=== PATIENT | male | born 1955 | race American Indian/Alaskan Native ===

== ENCOUNTER 2016-09-14 02:06 | Emergency (ER) | payer SELFPAY ==
--- NOTE | 2016-09-14 03:14 | Emergency Department Report ---
ED General Adult HPI - General Chief complaint: Altered Mental Status Stated complaint: POSSIBLE OVERDOSE Time Seen by Provider: 09/14/16 03:06 Source: patient, family, EMS (verbal report received from EMS. ems notes not available at time of chart dictation), RN notes reviewed Mode of arrival: Stretcher Limitations: No Limitations - History of Present Illness Initial comments: This is a 61-year-old male. He is previously unknown to me. He is brought to the hospital by EMS for resolved altered mental status. As per verbal report from EMS, the patient was recreationally consuming drugs, including beer and crack and a green party, occasionally uses tobacco, and had an episode of unresponsiveness. As per verbal report from EMS, the patient did not fall or hit his head. Patient got 1 mg of Narcan 2 prior to arrival which improved the patient's symptoms. The patient denies headache, neck pain, chest pain, abdominal pain, shortness of breath, homicidality and suicidality. -: Gradual Consistency: now resolved Improves with: medication Worsens with: none Associated Symptoms: denies other symptoms - Related Data Previous Rx's Medication Instructions Recorded Last Taken Type Naloxone HCl [Narcan] 4 mg NS Q1HR PRN #2 spray 09/14/16 Unknown Rx Allergies Allergy/AdvReac Type Severity Reaction Status Date / Time No Known Allergies Allergy Unverified 07/27/13 21:55 ED Review of Systems ROS: Stated complaint: POSSIBLE OVERDOSE Other details as noted in HPI Constitutional: denies: fever Eyes: denies: vision change ENT: denies: epistaxis Respiratory: denies: cough Cardiovascular: denies: chest pain Gastrointestinal: denies: abdominal pain Genitourinary: as per HPI Musculoskeletal: as per HPI Neurological: weakness Psychiatric: denies: homicidal thoughts, suicidal thoughts ED Past Medical Hx - Past Medical History Hx Hypertension: No Hx Heart Attack/AMI: No Hx Congestive Heart Failure: No Hx GERD: No Hx Renal Disease: No Hx Sickle Cell Disease: No Hx Headaches / Migraines: No Additional medical history: HTN denies taking any medication - Social History Smoking Status: Current Every Day Smoker Substance Use Type: Alcohol, Cocaine, Marijuana - Medications Home Medications: Home Medications Medication Instructions Recorded Confirmed Last Taken Type Naloxone HCl [Narcan] 4 mg NS Q1HR PRN #2 spray 09/14/16 Unknown Rx ED Physical Exam - General Limitations: No Limitations General appearance: alert, in no apparent distress - Head Head exam: Present: atraumatic, normocephalic - Eye Eye exam: Present: normal appearance - ENT ENT exam: Present: normal exam, normal orophraynx, mucous membranes moist, normal external ear exam - Neck Neck exam: Present: normal inspection, full ROM. Absent: tenderness, meningismus - Respiratory Respiratory exam: Present: normal lung sounds bilaterally. Absent: respiratory distress, wheezes, rales, rhonchi, stridor, chest wall tenderness - Cardiovascular Cardiovascular Exam: Present: regular rate, normal rhythm, normal heart sounds. Absent: bradycardia, tachycardia, irregular rhythm, systolic murmur, diastolic murmur, rubs, gallop - GI/Abdominal GI/Abdominal exam: Present: soft, normal bowel sounds. Absent: distended, guarding, rebound, rigid, pulsatile mass - Rectal Rectal exam: Present: deferred - Extremities Exam Extremities exam: Present: normal inspection, full ROM, normal capillary refill. Absent: tenderness, pedal edema, joint swelling, calf tenderness - Back Exam Back exam: Present: normal inspection, full ROM. Absent: tenderness, CVA tenderness (R), CVA tenderness (L), muscle spasm, paraspinal tenderness, vertebral tenderness - Neurological Exam Neurological exam: Present: alert, oriented X3, normal gait, other (Extraocular movements intact. Tongue midline. No facial droop. Facial sensation intact to light touch in the V1, V2, V3 distribution bilaterally. 5 and 5 strength in 4 extremities.. Sensation is intact to light touch in 4 extremities.). Absent : motor sensory deficit - Psychiatric Psychiatric exam: Present: normal affect, normal mood. Absent: homicidal ideation, suicidal ideation - Skin Skin exam: Present: warm, dry, intact, normal color. Absent: rash ED Course Vital Signs 09/14/16 09/14/16 09/14/16 02:27 02:30 02:40 Temperature Pulse Rate 77 79 77 Respiratory 16 15 14 Rate Blood Pressure 147/101 147/101 Blood Pressure [Right] O2 Sat by Pulse 96 95 95 Oximetry 09/14/16 09/14/16 09/14/16 02:41 02:45 02:50 Temperature 98.1 F Pulse Rate 78 94 H Respiratory 16 21 Rate Blood Pressure 150/94 145/90 Blood Pressure 150/94 [Right] O2 Sat by Pulse 98 99 Oximetry 09/14/16 09/14/16 09/14/16 03:00 03:10 03:20 Temperature Pulse Rate 80 77 74 Respiratory 16 13 14 Rate Blood Pressure 152/96 152/96 141/92 Blood Pressure [Right] O2 Sat by Pulse 95 96 99 Oximetry - Reevaluation(s) Reevaluation #1: 09/14/16 05:36 differential diagnosis: Polysubstance abuse, narcotic overdose, general medical evaluation Assessment and plan: 61-year-old male with resolved episode of unresponsiveness , most likely in the context of polysubstance abuse. The patient is currently afebrile, with unremarkable vital signs, has a GCS of 15, with an NIH score of 0 , and is clinically sober at this time. He does not require 1013, his serum toxicology studies are unremarkable, his laboratory studies are unremarkable. The patient has been observed in the ER for approximately 4 hours after arrival. His laboratory studies are unremarkable, and ct of the brain is unremarkable. The patient is instructed to discontinue consumption of illegal drugs. The patient will be discharged with Narcan prescription, and his family members will be instructed to come by and pick him up, and they will be instructed on how to administer the medicine. Reevaluation #2: 09/14/16 05:41 Patient walks with a steady gait. He feels improved. He is clinically sober. He will be discharged. Currently awaiting family to come by and pick him up. ED Medical Decision Making - Lab Data Result diagrams: 09/14/16 03:18 09/14/16 03:18 Vital Signs 09/14/16 09/14/16 09/14/16 02:27 02:30 02:40 Temperature Pulse Rate 77 79 77 Respiratory 16 15 14 Rate Blood Pressure 147/101 147/101 Blood Pressure [Right] O2 Sat by Pulse 96 95 95 Oximetry 09/14/16 09/14/16 09/14/16 02:41 02:45 02:50 Temperature 98.1 F Pulse Rate 78 94 H Respiratory 16 21 Rate Blood Pressure 150/94 145/90 Blood Pressure 150/94 [Right] O2 Sat by Pulse 98 99 Oximetry 09/14/16 09/14/16 09/14/16 03:00 03:10 03:20 Temperature Pulse Rate 80 77 74 Respiratory 16 13 14 Rate Blood Pressure 152/96 152/96 141/92 Blood Pressure [Right] O2 Sat by Pulse 95 96 99 Oximetry Lab Results 09/14/16 09/14/16 09/14/16 Range/Units 03:18 03:18 03:18 WBC 6.6 (4.5-11.0) K/mm3 RBC 5.14 H (3.65-5.03) M/mm3 Hgb 13.4 (11.8-15.2) gm/dl Hct 40.2 (35.5-45.6) % MCV 78 L (84-94) fl MCH 26 L (28-32) pg MCHC 33 (32-34) % RDW 14.6 (13.2-15.2) % Plt Count 231 (140-440) K/mm3 Sodium 137 (137-145) mmol/L Potassium 3.5 L (3.6-5.0) mmol/L Chloride 100.4 (98-107) mmol/L Carbon Dioxide 21 L (22-30) mmol/L Anion Gap 19 mmol/L BUN 12 (9-20) mg/dL Creatinine 1.2 (0.8-1.5) mg/dL Estimated GFR > 60 ml/min BUN/Creatinine Ratio 10.00 % Glucose 105 H (75-100) mg/dL Calcium 9.5 (8.4-10.2) mg/dL Magnesium 2.10 (1.7-2.3) mg/dL Total Creatine Kinase 194 H (55-170) units/L Urine Color (Yellow) Urine Turbidity (Clear) Urine pH (5.0-7.0) Ur Specific [place] (1.003-1.030) Urine Protein (Negative) mg/dL Urine Glucose (UA) (Negative) mg/dL Urine Ketones (Negative) mg/dL Urine Blood (Negative) Urine Nitrite (Negative) Urine Bilirubin (Negative) Urine Urobilinogen (<2.0) mg/dL Ur Leukocyte Esterase (Negative) Urine WBC (Auto) (0.0-6.0) /HPF Urine RBC (Auto) (0.0-6.0) /HPF Urine Mucus /HPF Salicylates < 0.3 L (2.8-20.0) mg/dL Urine Opiates Screen Urine Methadone Screen Acetaminophen (10.0-30.0) ug/mL Ur Barbiturates Screen Ur Phencyclidine Scrn Ur Amphetamines Screen U Benzodiazepines Scrn Urine Cocaine Screen U Marijuana (THC) Screen Plasma/Serum Alcohol (0-0.07) gm% 09/14/16 09/14/16 09/14/16 Range/Units 03:18 03:18 04:59 WBC (4.5-11.0) K/mm3 RBC (3.65-5.03) M/mm3 Hgb (11.8-15.2) gm/dl Hct (35.5-45.6) % MCV (84-94) fl MCH (28-32) pg MCHC (32-34) % RDW (13.2-15.2) % Plt Count (140-440) K/mm3 Sodium (137-145) mmol/L Potassium (3.6-5.0) mmol/L Chloride (98-107) mmol/L Carbon Dioxide (22-30) mmol/L Anion Gap mmol/L BUN (9-20) mg/dL Creatinine (0.8-1.5) mg/dL Estimated GFR ml/min BUN/Creatinine Ratio % Glucose (75-100) mg/dL Calcium (8.4-10.2) mg/dL Magnesium (1.7-2.3) mg/dL Total Creatine Kinase (55-170) units/L Urine Color Yellow (Yellow) Urine Turbidity Clear (Clear) Urine pH 5.0 (5.0-7.0) Ur Specific [place] 1.010 (1.003-1.030) Urine Protein <15 mg/dl (Negative) mg/dL Urine Glucose (UA) Neg (Negative) mg/dL Urine Ketones Neg (Negative) mg/dL Urine Blood Sm (Negative) Urine Nitrite Neg (Negative) Urine Bilirubin Neg (Negative) Urine Urobilinogen < 2.0 (<2.0) mg/dL Ur Leukocyte Esterase Neg (Negative) Urine WBC (Auto) 1.0 (0.0-6.0) /HPF Urine RBC (Auto) 4.0 (0.0-6.0) /HPF Urine Mucus Few /HPF Salicylates (2.8-20.0) mg/dL Urine Opiates Screen Urine Methadone Screen Acetaminophen < 15.0 (10.0-30.0) ug/mL Ur Barbiturates Screen Ur Phencyclidine Scrn Ur Amphetamines Screen U Benzodiazepines Scrn Urine Cocaine Screen U Marijuana (THC) Screen Plasma/Serum Alcohol 0.01 (0-0.07) gm% 09/14/16 Range/Units 04:59 WBC (4.5-11.0) K/mm3 RBC (3.65-5.03) M/mm3 Hgb (11.8-15.2) gm/dl Hct (35.5-45.6) % MCV (84-94) fl MCH (28-32) pg MCHC (32-34) % RDW (13.2-15.2) % Plt Count (140-440) K/mm3 Sodium (137-145) mmol/L Potassium (3.6-5.0) mmol/L Chloride (98-107) mmol/L Carbon Dioxide (22-30) mmol/L Anion Gap mmol/L BUN (9-20) mg/dL Creatinine (0.8-1.5) mg/dL Estimated GFR ml/min BUN/Creatinine Ratio % Glucose (75-100) mg/dL Calcium (8.4-10.2) mg/dL Magnesium (1.7-2.3) mg/dL Total Creatine Kinase (55-170) units/L Urine Color (Yellow) Urine Turbidity (Clear) Urine pH (5.0-7.0) Ur Specific [place] (1.003-1.030) Urine Protein (Negative) mg/dL Urine Glucose (UA) (Negative) mg/dL Urine Ketones (Negative) mg/dL Urine Blood (Negative) Urine Nitrite (Negative) Urine Bilirubin (Negative) Urine Urobilinogen (<2.0) mg/dL Ur Leukocyte Esterase (Negative) Urine WBC (Auto) (0.0-6.0) /HPF Urine RBC (Auto) (0.0-6.0) /HPF Urine Mucus /HPF Salicylates (2.8-20.0) mg/dL Urine Opiates Screen Presumptive negative Urine Methadone Screen Presumptive negative Acetaminophen (10.0-30.0) ug/mL Ur Barbiturates Screen Presumptive negative Ur Phencyclidine Scrn Presumptive negative Ur Amphetamines Screen Presumptive negative U Benzodiazepines Scrn Presumptive negative Urine Cocaine Screen Presumptive negative U Marijuana (THC) Screen Presumptive negative Plasma/Serum Alcohol (0-0.07) gm% - EKG Data 09/14/16 05:37 normal sinus, 74 bpm, normal axis, QTC 450 ms, not morphologically consistent with STEMI, abnormal EKG. - Radiology Data Radiology results: report reviewed, image reviewed Noncontrast CT scan of the brain is negative Critical care attestation.: If time is entered above; I have spent that time in minutes in the direct care of this critically ill patient, excluding procedure time. ED Disposition Clinical Impression: Polysubstance abuse Disposition: DC-01 TO HOME OR SELFCARE Is pt being admited?: No Does the pt Need Aspirin: No Condition: Stable Instructions: Polysubstance Abuse (ED) Additional Instructions: Discontinue consumption of crack, dopa, illegal drugs. They are bad for your health. Some of these medications can cause . Follow-up with your primary care doctor within the next week to 2 weeks. Return to the ER Runaway with fevers or chills, chest pain or shortness of breath, homicidality, suicidality, altered mental status and confusion. Family members will be instructed on how to use the Narcan medication. Referrals: PRIMARY CAREMD [Primary Care Provider] - 3-5 Days MITALI HE MD [Staff Physician] - [facility] Days
[2016-09-14 03:55] LABS: Hematocrit 40.2 % (35.5-45.6); Hemoglobin 13.4 gm/dl (11.8-15.2); Mean Corpuscular HGB Conc 33 % (32-34); Mean Corpuscular Hemoglobin 26 pg (28-32); Mean Corpuscular Volume 78 fl (84-94); Platelet Count 231 K/mm3 (140-440); Red Blood Count 5.14 M/mm3 (3.65-5.03); Red Cell Distribution Width 14.6 % (13.2-15.2); White Blood Count 6.6 K/mm3 (4.5-11.0)
--- NOTE | 2016-09-14 04:03 | Cat Scan Report ---
FINAL REPORT PROCEDURE: CT HEAD/BRAIN WO CON TECHNIQUE: Computerized tomography of the head was performed without contrast material. HISTORY: resolved ams COMPARISON: No prior studies are available for comparison. FINDINGS: Skull and scalp: Normal. Paranasal sinuses: Normal. Ventricles and subarachnoid spaces: Normal. Cerebrum: No evidence of hemorrhage, acute infarction or mass . Cerebellum and brainstem: No evidence of hemorrhage, acute infarction or mass. Vasculature: Normal. Comments: None. IMPRESSION: There is no evidence of an acute intracranial process
[2016-09-14 04:44] LABS: Blood Urea Nitrogen 12 mg/dL (9-20); Calcium 9.5 mg/dL (8.4-10.2); Carbon Dioxide 21 mmol/L (22-30); Creatine Kinase 194 units/L (55-170); Glucose 105 mg/dL (75-100)
[2016-09-14 04:45] LABS: Anion Gap 19 mmol/L; Chloride 100.4 mmol/L (98-107); Potassium 3.5 mmol/L (3.6-5.0); Sodium 137 mmol/L (137-145)
[2016-09-14 05:23] LABS: Bilirubin,Urine NEG (Negative); Blood,Urine SM (Negative); Ketones,Urine NEG (Negative); Leukocyte Esterase,Urine NEG (Negative); Mucus,Urine FEW /HPF; Nitrite,Urine NEG (Negative); Protein,Urine <15 mg/dL mg/dL (Negative); Urobilinogen,Urine < 2.0 mg/dL (<2.0)
[2016-09-14 05:29] LABS: Urine Drugs of Abuse Note Disclamer
[2016-09-14 05:46] VITALS: BP 154/87
== END 2016-09-14 06:37 | disposition home or self-care (01) ==
LOC: ED 02:06
DX: F14.10 Cocaine abuse, uncomplicated (principal); F19.10 Other psychoactive substance abuse, uncomplicated; F17.200 Nicotine dependence, unspecified, uncomplicated; F12.10 Cannabis abuse, uncomplicated
CPT/HCPCS: 36415; 70450; 80048; 80307; 81001; 82550; 83735; 85027; 93005; 93010; 99285; G0480; 80320

== ENCOUNTER 2017-06-27 11:40 | Inpatient (IN) | payer OTHER ==
[2017-06-27 13:00] LABS: Basophils # (Auto) 0.1 K/mm3 (0.0-0.1); Basophils % (Auto) 0.7 % (0.0-1.8); Eosinophils # (Auto) 0.1 K/mm3 (0.0-0.4); Eosinophils % (Auto) 2.1 % (0.0-4.3); Hematocrit 43.1 % (35.5-45.6); Lymphocytes # (Auto) 2.9 K/mm3 (1.2-5.4); Lymphocytes % (Auto) 42.5 % (13.4-35.0); Mean Corpuscular HGB Conc 32 % (32-34); Mean Corpuscular Volume 80 fl (84-94); Monocytes # (Auto) 0.7 K/mm3 (0.0-0.8); Monocytes % (Auto) 10.3 % (0.0-7.3); Platelet Count 234 K/mm3 (140-440); Red Cell Distribution Width 16.3 % (13.2-15.2)
[2017-06-27 13:01] LABS: Mean Corpuscular Hemoglobin 26 pg (28-32)
[2017-06-27 13:10] LABS: Calcium 9.4 mg/dL (8.4-10.2)
[2017-06-27] MEDS ORDERED: NACL 0.9% 1000 ML 1,000 ML IV ONE (13:31)
[2017-06-27] MEDS ORDERED: ASPIRIN PO ONE (14:42)
[2017-06-27] MEDS ORDERED: ALUM-MAG HYDROX-SIMETH 200-200-20MG/5ML PO ONE (14:43)
--- NOTE | 2017-06-27 14:44 | Emergency Department Report ---
ED Psych HPI - General Chief Complaint: Psych Stated Complaint: ANXIETY Time Seen by Provider: 06/27/17 12:17 Source: patient, EMS Mode of arrival: Stretcher Limitations: No Limitations - History of Present Illness Initial Comments: 61-year-old male with a past medical history of HIV and hypertension presents to the hospital with complaints of parnoia after smoking crack. Patient states he was seeing flashes of light and felt like people were chasing him. He denies suicidal or homicidal ideation. He denies underlying psychiatric history. He states that his viral load was undetectable. Patient complains of mild shortness of breath described as gas pain and is belching during examination. No complaints of shortness of breath, nausea, vomiting, or diaphoresis. - Related Data Previous Rx's Medication Instructions Recorded Last Taken Type Naloxone HCl [Narcan] 4 mg NS Q1HR PRN #2 spray 09/14/16 Unknown Rx Allergies Allergy/AdvReac Type Severity Reaction Status Date / Time No Known Allergies Allergy Unverified 07/27/13 21:55 ED Review of Systems ROS: Stated complaint: ANXIETY Other details as noted in HPI Comment: All other systems reviewed and negative ED Past Medical Hx - Past Medical History Previous Medical History?: Yes Hx Hypertension: No Hx Heart Attack/AMI: No Hx Congestive Heart Failure: No Hx GERD: No Hx Renal Disease: No Hx Sickle Cell Disease: No Hx Headaches / Migraines: No Hx HIV: Yes Additional medical history: HTN denies taking any medication - Surgical History Past Surgical History?: Yes Additional Surgical History: Inguinal hernia - Social History Smoking Status: Current Every Day Smoker Substance Use Type: Alcohol, Cocaine - Medications Home Medications: Home Medications Medication Instructions Recorded Confirmed Last Taken Type Naloxone HCl [Narcan] 4 mg NS Q1HR PRN #2 spray 09/14/16 Unknown Rx ED Physical Exam - General Limitations: No Limitations - Other Other exam information: General: No limitations, patient is alert in no acute distress Head exam: Atraumatic, normocephalic Eyes exam: Normal appearance ENT: Moist mucous membrane, normal oropharynx Neck exam: Normal inspection, full range of motion, no meningismus nontender Respiratory exam: Clear to auscultation bilateral, no wheezes, rales, crackles Cardiovascular: Normal rate and rhythm, normal heart sounds Abdomen: Soft, nondistended, and nontender, with normal bowel sounds, no rebound, or guarding Extremity: Full range of motion normal inspection no deformity, no calf tenderness or edema Back: Normal Inspection, full range of motion, no tenderness Neurologic: Alert, oriented x3, cranial nerves intact, no motor or sensory deficit Psychiatric: normal affect, normal mood Skin: Warm, dry, intact ED Course Vital Signs 06/27/17 12:52 Temperature 98 F Pulse Rate 20 L Respiratory 18 Rate Blood Pressure 123/82 [Left] O2 Sat by Pulse 96 Oximetry ED Medical Decision Making - Lab Data Result diagrams: 06/27/17 12:42 06/27/17 12:42 Lab Results 06/27/17 06/27/17 06/27/17 Range/Units 12:42 12:42 12:42 WBC (4.5-11.0) K/mm3 RBC (3.65-5.03) M/mm3 Hgb (11.8-15.2) gm/dl Hct (35.5-45.6) % MCV (84-94) fl MCH (28-32) pg MCHC (32-34) % RDW (13.2-15.2) % Plt Count (140-440) K/mm3 Lymph % (Auto) (13.4-35.0) % Falls % (Auto) (0.0-7.3) % Eos % (Auto) (0.0-4.3) % Baso % (Auto) (0.0-1.8) % Lymph # (1.2-5.4) K/mm3 Falls # (0.0-0.8) K/mm3 Eos # (0.0-0.4) K/mm3 Baso # (0.0-0.1) K/mm3 Seg Neutrophils % (40.0-70.0) % Seg Neutrophils # (1.8-7.7) K/mm3 Sodium 137 (137-145) mmol/L Potassium 3.9 (3.6-5.0) mmol/L Chloride 102.0 (98-107) mmol/L Carbon Dioxide 23 (22-30) mmol/L Anion Gap 16 mmol/L BUN 17 (9-20) mg/dL Creatinine 1.8 H (0.8-1.5) mg/dL Estimated GFR 46 ml/min BUN/Creatinine Ratio 9 % Glucose 74 L (75-100) mg/dL Calcium 9.4 (8.4-10.2) mg/dL Total Creatine Kinase (55-170) units/L Troponin T (0.00-0.029) ng/mL Urine Color (Yellow) Urine Turbidity (Clear) Urine pH (5.0-7.0) Ur Specific [place] (1.003-1.030) Urine Protein (Negative) mg/dL Urine Glucose (UA) (Negative) mg/dL Urine Ketones (Negative) mg/dL Urine Blood (Negative) Urine Nitrite (Negative) Urine Bilirubin (Negative) Urine Urobilinogen (<2.0) mg/dL Ur Leukocyte Esterase (Negative) Urine WBC (Auto) (0.0-6.0) /HPF Urine RBC (Auto) (0.0-6.0) /HPF Urine Mucus /HPF Salicylates < 0.3 L (2.8-20.0) mg/dL Urine Opiates Screen Urine Methadone Screen Acetaminophen < 5.0 L (10.0-30.0) ug/mL Ur Barbiturates Screen Ur Phencyclidine Scrn Ur Amphetamines Screen U Benzodiazepines Scrn Urine Cocaine Screen U Marijuana (THC) Screen Drugs of Abuse Note Plasma/Serum Alcohol (0-0.07) % 06/27/17 06/27/17 06/27/17 Range/Units 12:42 12:42 12:42 WBC 6.8 (4.5-11.0) K/mm3 RBC 5.40 H (3.65-5.03) M/mm3 Hgb 14.0 (11.8-15.2) gm/dl Hct 43.1 (35.5-45.6) % MCV 80 L (84-94) fl MCH 26 L (28-32) pg MCHC 32 (32-34) % RDW 16.3 H (13.2-15.2) % Plt Count 234 (140-440) K/mm3 Lymph % (Auto) 42.5 H (13.4-35.0) % Falls % (Auto) 10.3 H (0.0-7.3) % Eos % (Auto) 2.1 (0.0-4.3) % Baso % (Auto) 0.7 (0.0-1.8) % Lymph # 2.9 (1.2-5.4) K/mm3 Falls # 0.7 (0.0-0.8) K/mm3 Eos # 0.1 (0.0-0.4) K/mm3 Baso # 0.1 (0.0-0.1) K/mm3 Seg Neutrophils % 44.4 (40.0-70.0) % Seg Neutrophils # 3.0 (1.8-7.7) K/mm3 Sodium (137-145) mmol/L Potassium (3.6-5.0) mmol/L Chloride (98-107) mmol/L Carbon Dioxide (22-30) mmol/L Anion Gap mmol/L BUN (9-20) mg/dL Creatinine (0.8-1.5) mg/dL Estimated GFR ml/min BUN/Creatinine Ratio % Glucose (75-100) mg/dL Calcium (8.4-10.2) mg/dL Total Creatine Kinase 327 H (55-170) units/L Troponin T (0.00-0.029) ng/mL Urine Color (Yellow) Urine Turbidity (Clear) Urine pH (5.0-7.0) Ur Specific [place] (1.003-1.030) Urine Protein (Negative) mg/dL Urine Glucose (UA) (Negative) mg/dL Urine Ketones (Negative) mg/dL Urine Blood (Negative) Urine Nitrite (Negative) Urine Bilirubin (Negative) Urine Urobilinogen (<2.0) mg/dL Ur Leukocyte Esterase (Negative) Urine WBC (Auto) (0.0-6.0) /HPF Urine RBC (Auto) (0.0-6.0) /HPF Urine Mucus /HPF Salicylates (2.8-20.0) mg/dL Urine Opiates Screen Urine Methadone Screen Acetaminophen (10.0-30.0) ug/mL Ur Barbiturates Screen Ur Phencyclidine Scrn Ur Amphetamines Screen U Benzodiazepines Scrn Urine Cocaine Screen U Marijuana (THC) Screen Drugs of Abuse Note Plasma/Serum Alcohol 0.02 (0-0.07) % 06/27/17 06/27/17 06/27/17 Range/Units 14:28 14:38 14:38 WBC (4.5-11.0) K/mm3 RBC (3.65-5.03) M/mm3 Hgb (11.8-15.2) gm/dl Hct (35.5-45.6) % MCV (84-94) fl MCH (28-32) pg MCHC (32-34) % RDW (13.2-15.2) % Plt Count (140-440) K/mm3 Lymph % (Auto) (13.4-35.0) % Falls % (Auto) (0.0-7.3) % Eos % (Auto) (0.0-4.3) % Baso % (Auto) (0.0-1.8) % Lymph # (1.2-5.4) K/mm3 Falls # (0.0-0.8) K/mm3 Eos # (0.0-0.4) K/mm3 Baso # (0.0-0.1) K/mm3 Seg Neutrophils % (40.0-70.0) % Seg Neutrophils # (1.8-7.7) K/mm3 Sodium (137-145) mmol/L Potassium (3.6-5.0) mmol/L Chloride (98-107) mmol/L Carbon Dioxide (22-30) mmol/L Anion Gap mmol/L BUN (9-20) mg/dL Creatinine (0.8-1.5) mg/dL Estimated GFR ml/min BUN/Creatinine Ratio % Glucose (75-100) mg/dL Calcium (8.4-10.2) mg/dL Total Creatine Kinase (55-170) units/L Troponin T < 0.010 (0.00-0.029) ng/mL Urine Color Yellow (Yellow) Urine Turbidity Clear (Clear) Urine pH 5.0 (5.0-7.0) Ur Specific [place] 1.014 (1.003-1.030) Urine Protein <15 mg/dl (Negative) mg/dL Urine Glucose (UA) Neg (Negative) mg/dL Urine Ketones Neg (Negative) mg/dL Urine Blood Sm (Negative) Urine Nitrite Neg (Negative) Urine Bilirubin Neg (Negative) Urine Urobilinogen < 2.0 (<2.0) mg/dL Ur Leukocyte Esterase Mod (Negative) Urine WBC (Auto) 37.0 H (0.0-6.0) /HPF Urine RBC (Auto) 3.0 (0.0-6.0) /HPF Urine Mucus Few /HPF Salicylates (2.8-20.0) mg/dL Urine Opiates Screen Presumptive negative Urine Methadone Screen Presumptive negative Acetaminophen (10.0-30.0) ug/mL Ur Barbiturates Screen Presumptive negative Ur Phencyclidine Scrn Presumptive negative Ur Amphetamines Screen Presumptive negative U Benzodiazepines Scrn Presumptive negative Urine Cocaine Screen Presumptive positive U Marijuana (THC) Screen Presumptive negative Drugs of Abuse Note Disclamer Plasma/Serum Alcohol (0-0.07) % - EKG Data -: EKG Interpreted by Me EKG shows normal: sinus rhythm, axis (qrs -32), QRS complexes (85), ST-T waves ( lat t wave inversions) Rate: normal (69) - Radiology Data Radiology results: report reviewed - Medical Decision Making Patient appears to have an episode drug-induced psychosis he says is improving. Pt is not a 1013. He complains of chest pain. Even though he is belching it appears atypical patient has new flipped anterior lateral T waves compared to 2017 EKG. Initial troponin negative. She'll be admitted for further cardiac evaluation. CK mildly elevated with new mild renal insufficiency. Pt given asa po bactrim given for UTI. culture pending - Differential Diagnosis OK, unstable angina, psychosis, drug-induced psychosis Critical Care Time: No Critical care attestation.: If time is entered above; I have spent that time in minutes in the direct care of this critically ill patient, excluding procedure time. ED Disposition Clinical Impression: Chest pain, Cocaine abuse, Acute electrocardiogram changes, Acute renal insufficiency, HIV (human immunodeficiency virus infection), UTI (urinary tract infection), Drug-induced psychotic disorder with hallucinations Disposition: OP ADMIT IP TO THIS HOSP Is pt being admited?: Yes Condition: Stable Time of Disposition: 14:44 (Dr sanchez/hosp)
[2017-06-27 15:13] LABS: Bilirubin,Urine NEG (Negative); Blood,Urine SM (Negative); Color,Urine Yellow (Yellow); Mucus,Urine FEW /HPF; Protein,Urine <15 mg/dL mg/dL (Negative); Urobilinogen,Urine < 2.0 mg/dL (<2.0)
--- NOTE | 2017-06-27 15:21 | XRay Report ---
CHEST 2 VIEWS INDICATION: Chest pain, crack abuse. COMPARISON: 12/30/2008 FINDINGS: Frontal and lateral chest radiographs demonstrate normal cardiomediastinal silhouette. Clear lungs. Right hemidiaphragm again slightly elevated. Intact bones. CONCLUSION: No acute chest process, stable. Thank you for the opportunity to participate in this patient's care.
[2017-06-27 15:38] LABS: Amphetamine Screen,Urine PRESUMPTIVE NEGATIVE; Benzodiazepines Screen,Urine PRESUMPTIVE NEGATIVE; Cannabinoid Screen,Urine PRESUMPTIVE NEGATIVE; Methadone Screen,Urine PRESUMPTIVE NEGATIVE; Opiate Screen,Urine PRESUMPTIVE NEGATIVE
[2017-06-27 15:39] LABS: Cocaine Screen,Urine PRESUMPTIVE POSITIVE
[2017-06-27] MEDS ORDERED: BACTRIM DS PO ONE (15:58)
[2017-06-27] MEDS ORDERED: TYLENOL ONE (17:43)
[2017-06-27] MEDS ORDERED: ALUM-MAG HYDROX-SIMETH 200-200-20MG/5ML ONE (17:43)
[2017-06-27] MEDS ORDERED: MORPHINE IV PRN (20:13)
[2017-06-27] MEDS ORDERED: PERCOCET 5/325 PO PRN (20:13)
[2017-06-27] MEDS ORDERED: SODIUM CHLORIDE FLUSH SYRINGE 10 ML IV PRN (20:13)
[2017-06-27] MEDS ORDERED: ZOFRAN IV PRN (20:13)
[2017-06-27] MEDS ORDERED: TYLENOL PO PRN (20:13)
--- NOTE | 2017-06-27 20:13 | History and Physical Report ---
History of Present Illness Date of examination: 06/27/17 Date of admission: 06/27/17 14:55 Chief complaint: Chief complaint: Paranoid symptoms Epigastric discomfort one day History of present illness: History of Present Illness: 61-year-old -[place] male with history of hypertension and HIV presents to the hospital with complaints of paranoia after smoking crack. Patient was seeing flashes of light and felt like people were chasing him. Denies psychiatric history. No chest pain. Some epigastric discomfort present. Abnormal EKG for which the patient is being admitted Past Medical History Previous Medical History?: Yes HIV: Yes Additional medical history: HTN denies taking any medication - Surgical History Past Surgical History?: Yes Additional Surgical History: Inguinal hernia - Social History Smoking Status: Current Every Day Smoker Substance Use Type: Alcohol, Cocaine Family history Hypertension - Medications Home Medications: Home Medications Medication Instructions Recorded Confirmed Last Taken Type Naloxone HCl [Narcan] 4 mg NS Q1HR PRN #2 spray 09/14/16 Unknown Rx Review of Systems ROS: Stated complaint: ANXIETY Other details as noted in HPI Comment: All other systems reviewed and negative Medications and Allergies Allergies Allergy/AdvReac Type Severity Reaction Status Date / Time No Known Allergies Allergy Unverified 07/27/13 21:55 Home Medications Medication Instructions Recorded Confirmed Last Taken Type Naloxone HCl [Narcan] 4 mg NS Q1HR PRN #2 spray 09/14/16 Unknown Rx Exam - Physical Exam Narrative exam: Lying in bed comfortably - Constitutional Vitals: Temp Pulse Resp BP Pulse Ox 98.2 F 68 18 138/79 97 06/27/17 19:55 06/27/17 19:55 06/27/17 19:55 06/27/17 19:55 06/27/17 19:55 General appearance: Present: no acute distress, well-nourished - EENT Eyes: Present: PERRL ENT: hearing intact, clear oral mucosa - Neck Neck: Present: supple, normal ROM - Respiratory Respiratory effort: normal Respiratory: bilateral: CTA - Cardiovascular Heart rate: 80 Rhythm: regular Heart Sounds: Present: S1 & S2. Absent: rub, click - Extremities Extremities: no ischemia, pulses intact, pulses symmetrical, No edema Peripheral Pulses: within normal limits - Abdominal General gastrointestinal: Present: soft, non-tender, non-distended, normal bowel sounds Male genitourinary: Present: normal - Rectal Rectal Exam: deferred - Integumentary Integumentary: Present: clear, warm, dry - Musculoskeletal Musculoskeletal: gait normal, strength equal bilaterally - Psychiatric Psychiatric: appropriate mood/affect, intact judgment & insight - Neurologic Neurologic: CNII-XII intact, moves all extremities - Allied Health Allied health notes reviewed: nursing, case management Results - Labs CBC & Chem 7: 06/27/17 12:42 06/27/17 12:42 Labs: Laboratory Last Values WBC 6.8 K/mm3 (4.5-11.0) 06/27/17 12:42 RBC 5.40 M/mm3 (3.65-5.03) H 06/27/17 12:42 Hgb 14.0 gm/dl (11.8-15.2) 06/27/17 12:42 Hct 43.1 % (35.5-45.6) 06/27/17 12:42 MCV 80 fl (84-94) L 06/27/17 12:42 MCH 26 pg (28-32) L 06/27/17 12:42 MCHC 32 % (32-34) 06/27/17 12:42 RDW 16.3 % (13.2-15.2) H 06/27/17 12:42 Plt Count 234 K/mm3 (140-440) 06/27/17 12:42 Lymph % (Auto) 42.5 % (13.4-35.0) H 06/27/17 12:42 [place] % (Auto) 10.3 % (0.0-7.3) H 06/27/17 12:42 Eos % (Auto) 2.1 % (0.0-4.3) 06/27/17 12:42 Baso % (Auto) 0.7 % (0.0-1.8) 06/27/17 12:42 Lymph # 2.9 K/mm3 (1.2-5.4) 06/27/17 12:42 [place] # 0.7 K/mm3 (0.0-0.8) 06/27/17 12:42 Eos # 0.1 K/mm3 (0.0-0.4) 06/27/17 12:42 Baso # 0.1 K/mm3 (0.0-0.1) 06/27/17 12:42 Seg Neutrophils % 44.4 % (40.0-70.0) 06/27/17 12:42 Seg Neutrophils # 3.0 K/mm3 (1.8-7.7) 06/27/17 12:42 Sodium 137 mmol/L (137-145) 06/27/17 12:42 Potassium 3.9 mmol/L (3.6-5.0) 06/27/17 12:42 Chloride 102.0 mmol/L (98-107) 06/27/17 12:42 Carbon Dioxide 23 mmol/L (22-30) 06/27/17 12:42 Anion Gap 16 mmol/L 06/27/17 12:42 BUN 17 mg/dL (9-20) 06/27/17 12:42 Creatinine 1.8 mg/dL (0.8-1.5) H 06/27/17 12:42 Estimated GFR 46 ml/min 06/27/17 12:42 BUN/Creatinine Ratio 9 % 06/27/17 12:42 Glucose 74 mg/dL (75-100) L 06/27/17 12:42 Calcium 9.4 mg/dL (8.4-10.2) 06/27/17 12:42 Total Creatine Kinase 327 units/L (55-170) H 06/27/17 12:42 Troponin T < 0.010 ng/mL (0.00-0.029) 06/27/17 18:18 Urine Color Yellow (Yellow) 06/27/17 14:38 Urine Turbidity Clear (Clear) 06/27/17 14:38 Urine pH 5.0 (5.0-7.0) 06/27/17 14:38 Ur Specific [place] 1.014 (1.003-1.030) 06/27/17 14:38 Urine Protein <15 mg/dl mg/dL (Negative) 06/27/17 14:38 Urine Glucose (UA) Neg mg/dL (Negative) 06/27/17 14:38 Urine Ketones Neg mg/dL (Negative) 06/27/17 14:38 Urine Blood Sm (Negative) 06/27/17 14:38 Urine Nitrite Neg (Negative) 06/27/17 14:38 Urine Bilirubin Neg (Negative) 06/27/17 14:38 Urine Urobilinogen < 2.0 mg/dL (<2.0) 06/27/17 14:38 Ur Leukocyte Esterase Mod (Negative) 06/27/17 14:38 Urine WBC (Auto) 37.0 /HPF (0.0-6.0) H 06/27/17 14:38 Urine RBC (Auto) 3.0 /HPF (0.0-6.0) 06/27/17 14:38 Urine Mucus Few /HPF 06/27/17 14:38 Salicylates < 0.3 mg/dL (2.8-20.0) L 06/27/17 12:42 Urine Opiates Screen Presumptive negative 06/27/17 14:38 Urine Methadone Screen Presumptive negative 06/27/17 14:38 Acetaminophen < 5.0 ug/mL (10.0-30.0) L 06/27/17 12:42 Ur Barbiturates Screen Presumptive negative 06/27/17 14:38 Ur Phencyclidine Scrn Presumptive negative 06/27/17 14:38 Ur Amphetamines Screen Presumptive negative 06/27/17 14:38 U Benzodiazepines Scrn Presumptive negative 06/27/17 14:38 Urine Cocaine Screen Presumptive positive 06/27/17 14:38 U Marijuana (THC) Screen Presumptive negative 06/27/17 14:38 Drugs of Abuse Note Disclamer 06/27/17 14:38 Plasma/Serum Alcohol 0.02 % (0-0.07) 06/27/17 12:42 - Imaging and Cardiology EKG: report reviewed Chest x-ray: report reviewed (no acute findings) Imaging and Cardiology: EKG Data EKG Interpreted by Ca EKG shows normal: sinus rhythm, axis (qrs -32), QRS complexes (85), ST-T waves ( lateral t wave inversions) Rate: normal (69) Assessment and Plan Advance Directives: Yes (full code) VTE prophylaxis?: Chemical Plan of care discussed with patient/family: Yes - Patient Problems (1) Chest pain Current Visit: Yes Status: Acute Qualifiers: Ischemic chest pain type: unspecified angina pectoris type Plan to address problem: Chest pain workup. Serial cardiac enzymes and Lexiscan in the morning (2) Acute electrocardiogram changes Current Visit: Yes Status: Acute Plan to address problem: Lexiscan in the morning (3) Drug-induced psychotic disorder with hallucinations Current Visit: Yes Status: Acute Plan to address problem: Mental health consult (4) HIV (human immunodeficiency virus infection) Current Visit: Yes Status: Chronic Plan to address problem: Patient not on any retrovirals (5) UTI (urinary tract infection) Current Visit: Yes Status: Acute Qualifiers: Urinary tract infection type: acute cystitis Plan to address problem: IV Rocephin (6) DVT prophylaxis Current Visit: Yes Status: Acute Plan to address problem: On Lovenox/heparin
[2017-06-27] MEDS: PEPCID PO SCH (22:26)
[2017-06-27] MEDS: SODIUM CHLORIDE FLUSH SYRINGE 10 ML IV SCH (22:26)
[2017-06-27] MEDS: HEPARIN SUB-Q SCH (22:26)
[2017-06-27] MEDS: D5NS 1,000 ML IV SCH (22:29)
[2017-06-28 03:47] LABS: Alanine Aminotransferase 20 units/L (7-56); Albumin 3.5 g/dL (3.9-5); BUN/Creatinine Ratio 12; Blood Urea Nitrogen 14 mg/dL (9-20); Calcium 8.6 mg/dL (8.4-10.2); Hemolysis Index 0
[2017-06-28 04:15] LABS: Hematocrit 36.8 % (35.5-45.6); Hemoglobin 12.2 gm/dl (11.8-15.2); Mean Corpuscular HGB Conc 33 % (32-34); Mean Corpuscular Volume 78 fl (84-94); Platelet Count 210 K/mm3 (140-440); Red Blood Count 4.71 M/mm3 (3.65-5.03); Red Cell Distribution Width 15.9 % (13.2-15.2)
[2017-06-28 04:18] LABS: Mean Corpuscular Hemoglobin 26 pg (28-32)
[2017-06-28 05:45] LABS: Monocytes % (Manual) 0 % (0.0-7.3); Total Cells Counted 100
[2017-06-28 05:46] LABS: Anisocytosis 1+; Target Cells Rare; Tear Drop Cells Rare
[2017-06-28] MEDS ORDERED: LEXISCAN IV ONE ×2 (08:10→08:17)
--- NOTE | 2017-06-28 11:43 | Event Note ---
Date: 06/28/17 Preliminary Nuclear stress test results Stress test negative for stressed induced ischemia EF 66% low risk for significant ischemia
[2017-06-28] MEDS: PEPCID PO SCH ×2 (12:00→22:32)
[2017-06-28] MEDS: HEPARIN SUB-Q SCH ×2 (12:00→22:33)
[2017-06-28] MEDS: cefTRIAXone 2 GM in NACL 0.9% 20 ML IV SCH (12:30)
--- NOTE | 2017-06-28 13:40 | Discharge Summary ---
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 Chest pain and paranoid symptoms probably secondary to cocaine use Patient was admitted to the hospital symptomatically managed subsequently underwent nuclear stress test which was negative for reversible ischemia preserved LV function Patient was also evaluated by psych, I recommended follow-up with behavioral health upon discharge, symptoms secondary to cocaine use Counseling done strongly advised to quit dictation drug use as well as tobacco use Today his comfortably in bed in no new complaints Denies chest pain, alert awake oriented 3 Vital signs stable Physical examination prior to discharge is unremarkable Patient is hemodynamically clinically stable at discharge Discharge diagnosis; Atypical chest pain; negative stress test Chest pain probably secondary to cocaine use GERD Hypertension Urinary tract infection HIV on antiretrovirals Cocaine abuse Ongoing tobacco use Disposition: DC-01 TO HOME OR SELFCARE Time spent for discharge: 31 min Core Measure Documentation - Palliative Care Palliative Care/ Comfort Measures: Not Applicable - Core Measures Any of the following diagnoses?: none Exam - Constitutional Vitals: Temp Pulse Resp BP Pulse Ox 98.4 F 81 18 137/81 96 06/28/17 05:06 06/28/17 10:40 06/28/17 05:06 06/28/17 10:40 06/28/17 05:06 General appearance: Present: no acute distress, well-nourished - EENT Eyes: Present: PERRL, EOM intact - Neck Neck: Present: supple, normal ROM - Respiratory Respiratory effort: normal Respiratory: negative: rales, rhonchi, wheezing - Cardiovascular Rhythm: regular Heart Sounds: Present: S1 & S2 - Extremities Extremities: no ischemia, No edema - Abdominal General gastrointestinal: Present: soft, non-tender, normal bowel sounds - Integumentary Integumentary: Present: clear, warm - Musculoskeletal Musculoskeletal: strength equal bilaterally - Psychiatric Psychiatric: appropriate mood/affect, cooperative - Neurologic Neurologic: CNII-XII intact, moves all extremities Plan Activity: no restrictions Diet: regular Special Instructions: smoking cessation Additional Instructions: Advised to quit cocaine and other recreational drugs. Smoking cessation counseling done. Advised to follow health department but his HIV needs Follow up with: PRIMARY CARE, [Primary Care Provider] - 3-5 Days Prescriptions: Famotidine [Pepcid] 20 mg PO BID #30 tablet Sulfamethoxazole/Trimethoprim [Bactrim Ds Tablet] 1 each PO BID #10 tablet
--- NOTE | 2017-06-28 13:51 | Progress Note ---
Assessment and Plan Assessment and plan: --Atypical chest pain; probably secondary to gastroesophageal reflux disease As well as cocaine use Stress test negative for fevers ischemia, ejection fraction 60% Continue supportive care --GERD; Pepcid --Cocaine abuse; counseling done advised to quit occupational drug use --Ongoing tobacco use; smoking cessation counseling done advised nicotine patch as needed --History of HIV; patient follows with health Department for his HIV needs --Urinary tract infection; empiric antibiotics, follow cultures --Paranoid behavior at the time of admission; probably secondary to cocaine use Pending psych evaluation --DVT prophylaxis; Lovenox Follow psych evaluation and recommendations Possible discharge in 1-2 days if stable Plan of care is reviewed with the patient and his nurse History Interval history: Patient seen and examined medical records reviewed Patient was admitted with chest pain and paranoid symptoms, possibly secondary to cocaine use Patient seems slightly better Underwent stress test which was negative for reversible ischemia, preserved left ventricular function Alert awake oriented 3 Vital signs reviewed Hospitalist Physical - Constitutional Vitals: Temp Pulse Resp BP Pulse Ox 98.4 F 81 18 137/81 96 06/28/17 05:06 06/28/17 10:40 06/28/17 05:06 06/28/17 10:40 06/28/17 05:06 General appearance: Present: no acute distress, well-nourished - EENT Eyes: Present: PERRL, EOM intact - Neck Neck: Present: supple, normal ROM - Respiratory Respiratory effort: normal Respiratory: negative: rales, rhonchi, wheezing - Cardiovascular Rhythm: regular Heart Sounds: Present: S1 & S2 - Extremities Extremities: no ischemia, No edema - Abdominal General gastrointestinal: soft, non-tender, non-distended, normal bowel sounds - Integumentary Integumentary: Present: clear, warm - Psychiatric Psychiatric: appropriate mood/affect, cooperative - Neurologic Neurologic: CNII-XII intact, moves all extremities Results - Labs CBC & Chem 7: 06/28/17 03:04 06/28/17 03:04 Labs: Laboratory Last Values WBC 5.1 K/mm3 (4.5-11.0) 06/28/17 03:04 RBC 4.71 M/mm3 (3.65-5.03) 06/28/17 03:04 Hgb 12.2 gm/dl (11.8-15.2) 06/28/17 03:04 Hct 36.8 % (35.5-45.6) D 06/28/17 03:04 MCV 78 fl (84-94) L 06/28/17 03:04 MCH 26 pg (28-32) L 06/28/17 03:04 MCHC 33 % (32-34) 06/28/17 03:04 RDW 15.9 % (13.2-15.2) H 06/28/17 03:04 Plt Count 210 K/mm3 (140-440) 06/28/17 03:04 Lymph % (Auto) [employer] Ranger 06/28/17 03:04 [place] % (Auto) 10.3 % (0.0-7.3) H 06/27/17 12:42 Eos % (Auto) 2.1 % (0.0-4.3) 06/27/17 12:42 Baso % (Auto) 0.7 % (0.0-1.8) 06/27/17 12:42 Lymph # 2.9 K/mm3 (1.2-5.4) 06/27/17 12:42 [place] # 0.7 K/mm3 (0.0-0.8) 06/27/17 12:42 Eos # 0.1 K/mm3 (0.0-0.4) 06/27/17 12:42 Baso # 0.1 K/mm3 (0.0-0.1) 06/27/17 12:42 Add Manual Diff Complete 06/28/17 03:04 Total Counted 100 06/28/17 03:04 Seg Neutrophils % [employer] Ranger 06/28/17 03:04 Seg Neuts % (Manual) 33.0 % (40.0-70.0) L 06/28/17 03:04 Band Neutrophils % 59.0 % 06/28/17 03:04 Lymphocytes % (Manual) 3.0 % (13.4-35.0) L 06/28/17 03:04 Reactive Lymphs % (Man) 0 % 06/28/17 03:04 Monocytes % (Manual) 0 % (0.0-7.3) 06/28/17 03:04 Eosinophils % (Manual) 3.0 % (0.0-4.3) 06/28/17 03:04 Basophils % (Manual) 2.0 % (0.0-1.8) H 06/28/17 03:04 Metamyelocytes % 0 % 06/28/17 03:04 Myelocytes % 0 % 06/28/17 03:04 Promyelocytes % 0 % 06/28/17 03:04 Blast Cells % 0 % 06/28/17 03:04 Nucleated RBC % 3.0 % (0.0-0.9) H 06/28/17 03:04 Seg Neutrophils # 3.0 K/mm3 (1.8-7.7) 06/27/17 12:42 Seg Neutrophils # Man 1.7 K/mm3 (1.8-7.7) L 06/28/17 03:04 Band Neutrophils # 3.0 K/mm3 06/28/17 03:04 Lymphocytes # (Manual) 0.2 K/mm3 (1.2-5.4) L 06/28/17 03:04 Abs React Lymphs (Man) 0.0 K/mm3 06/28/17 03:04 Monocytes # (Manual) 0.0 K/mm3 (0.0-0.8) 06/28/17 03:04 Eosinophils # (Manual) 0.2 K/mm3 (0.0-0.4) 06/28/17 03:04 Basophils # (Manual) 0.1 K/mm3 (0.0-0.1) 06/28/17 03:04 Metamyelocytes # 0.0 K/mm3 06/28/17 03:04 Myelocytes # 0.0 K/mm3 06/28/17 03:04 Promyelocytes # 0.0 K/mm3 06/28/17 03:04 Blast Cells # 0.0 K/mm3 06/28/17 03:04 WBC Morphology Not Reportable 06/28/17 03:04 Hypersegmented Neuts Not Reportable 06/28/17 03:04 Hyposegmented Neuts Not Reportable 06/28/17 03:04 Hypogranular Neuts Not Reportable 06/28/17 03:04 Smudge Cells Not Reportable 06/28/17 03:04 Toxic Granulation Not Reportable 06/28/17 03:04 Toxic Vacuolation Not Reportable 06/28/17 03:04 Dohle Bodies Not Reportable 06/28/17 03:04 Pelger-Huet Anomaly Not Reportable 06/28/17 03:04 Rachel Rods Not Reportable 06/28/17 03:04 Platelet Estimate Appears normal 06/28/17 03:04 Clumped Platelets Not Reportable 06/28/17 03:04 Plt Clumps, EDTA Not Reportable 06/28/17 03:04 Large Platelets Not Reportable 06/28/17 03:04 Giant Platelets Not Reportable 06/28/17 03:04 Platelet Satelliting Not Reportable 06/28/17 03:04 Plt Morphology Comment Not Reportable 06/28/17 03:04 RBC Morphology Not Reportable 06/28/17 03:04 Dimorphic RBCs Not Reportable 06/28/17 03:04 Polychromasia Not Reportable 06/28/17 03:04 Hypochromasia Not Reportable 06/28/17 03:04 Poikilocytosis Not Reportable 06/28/17 03:04 Anisocytosis 1+ 06/28/17 03:04 Microcytosis Not Reportable 06/28/17 03:04 Macrocytosis Not Reportable 06/28/17 03:04 Spherocytes Not Reportable 06/28/17 03:04 Pappenheimer Bodies Not Reportable 06/28/17 03:04 Sickle Cells Not Reportable 06/28/17 03:04 Target Cells Rare 06/28/17 03:04 Tear Drop Cells Rare 06/28/17 03:04 Ovalocytes Not Reportable 06/28/17 03:04 Helmet Cells Not Reportable 06/28/17 03:04 Mireles-Ken Caryl Bodies Not Reportable 06/28/17 03:04 Batson Rings Not Reportable 06/28/17 03:04 Antionette Cells Not Reportable 06/28/17 03:04 Bite Cells Not Reportable 06/28/17 03:04 Crenated Cell Not Reportable 06/28/17 03:04 Elliptocytes Not Reportable 06/28/17 03:04 Acanthocytes (Spur) Not Reportable 06/28/17 03:04 Rouleaux Not Reportable 06/28/17 03:04 Hemoglobin C Crystals Not Reportable 06/28/17 03:04 Schistocytes Not Reportable 06/28/17 03:04 Malaria parasites Not Reportable 06/28/17 03:04 Serge Bodies Not Reportable 06/28/17 03:04 Hem Pathologist Commnt No 06/28/17 03:04 Sodium 139 mmol/L (137-145) 06/28/17 03:04 Potassium 3.6 mmol/L (3.6-5.0) 06/28/17 03:04 Chloride 106.2 mmol/L (98-107) 06/28/17 03:04 Carbon Dioxide 24 mmol/L (22-30) 06/28/17 03:04 Anion Gap 12 mmol/L 06/28/17 03:04 BUN 14 mg/dL (9-20) 06/28/17 03:04 Creatinine 1.2 mg/dL (0.8-1.5) 06/28/17 03:04 Estimated GFR > 60 ml/min 06/28/17 03:04 BUN/Creatinine Ratio 12 % 06/28/17 03:04 Glucose 99 mg/dL (75-100) 06/28/17 03:04 Hemoglobin A1c 5.4 % (4-6) 06/27/17 21:08 Calcium 8.6 mg/dL (8.4-10.2) 06/28/17 03:04 Total Bilirubin 0.50 mg/dL (0.1-1.2) 06/28/17 03:04 AST 22 units/L (5-40) 06/28/17 03:04 ALT 20 units/L (7-56) 06/28/17 03:04 Alkaline Phosphatase 81 units/L (35-129) 06/28/17 03:04 Total Creatine Kinase 327 units/L (55-170) H 06/27/17 12:42 Troponin T < 0.010 ng/mL (0.00-0.029) 06/28/17 08:23 Total Protein 7.8 g/dL (6.3-8.2) 06/28/17 03:04 Albumin 3.5 g/dL (3.9-5) L 06/28/17 03:04 Albumin/Globulin Ratio 0.8 % 06/28/17 03:04 Urine Color Yellow (Yellow) 06/27/17 14:38 Urine Turbidity Clear (Clear) 06/27/17 14:38 Urine pH 5.0 (5.0-7.0) 06/27/17 14:38 Ur Specific [place] 1.014 (1.003-1.030) 06/27/17 14:38 Urine Protein <15 mg/dl mg/dL (Negative) 06/27/17 14:38 Urine Glucose (UA) Neg mg/dL (Negative) 06/27/17 14:38 Urine Ketones Neg mg/dL (Negative) 06/27/17 14:38 Urine Blood Sm (Negative) 06/27/17 14:38 Urine Nitrite Neg (Negative) 06/27/17 14:38 Urine Bilirubin Neg (Negative) 06/27/17 14:38 Urine Urobilinogen < 2.0 mg/dL (<2.0) 06/27/17 14:38 Ur Leukocyte Esterase Mod (Negative) 06/27/17 14:38 Urine WBC (Auto) 37.0 /HPF (0.0-6.0) H 06/27/17 14:38 Urine RBC (Auto) 3.0 /HPF (0.0-6.0) 06/27/17 14:38 Urine Mucus Few /HPF 06/27/17 14:38 Salicylates < 0.3 mg/dL (2.8-20.0) L 06/27/17 12:42 Urine Opiates Screen Presumptive negative 06/27/17 14:38 Urine Methadone Screen Presumptive negative 06/27/17 14:38 Acetaminophen < 5.0 ug/mL (10.0-30.0) L 06/27/17 12:42 Ur Barbiturates Screen Presumptive negative 06/27/17 14:38 Ur Phencyclidine Scrn Presumptive negative 06/27/17 14:38 Ur Amphetamines Screen Presumptive negative 06/27/17 14:38 U Benzodiazepines Scrn Presumptive negative 06/27/17 14:38 Urine Cocaine Screen Presumptive positive 06/27/17 14:38 U Marijuana (THC) Screen Presumptive negative 06/27/17 14:38 Drugs of Abuse Note Disclamer 06/27/17 14:38 Plasma/Serum Alcohol 0.02 % (0-0.07) 06/27/17 12:42
[2017-06-28] MEDS: D5NS 1,000 ML IV SCH (16:21)
[2017-06-28] MEDS: SODIUM CHLORIDE FLUSH SYRINGE 10 ML IV SCH ×2 (16:25→22:47)
[2017-06-29] MEDS: D5NS 1,000 ML IV SCH ×2 (00:44→09:49)
[2017-06-29 09:02] VITALS: BP 144/95
[2017-06-29] MEDS: HEPARIN SUB-Q SCH (09:49)
[2017-06-29] MEDS: PEPCID PO SCH (09:49)
[2017-06-29] MEDS: cefTRIAXone 2 GM in NACL 0.9% 20 ML IV SCH (09:50)
[2017-06-29] MEDS: SODIUM CHLORIDE FLUSH SYRINGE 10 ML IV SCH (09:52)
--- NOTE | 2017-07-02 21:44 | Treadmill Report ---
THALLIUM STRESS TEST LEFT VENTRICLE: Left ventricular chamber size is within normal spread. Perfusion study is normal on the rest images. There is a low count density with nonspecific defects on the resting study. Gated analysis demonstrates normal left ventricular systolic function, ejection fraction of 66%. CONCLUSION: Normal stress myocardial perfusion study. JOB# [id number] CA/NTS
== END 2017-06-29 13:00 | disposition home or self-care (01) | DRG 897 ==
LOC: ED 11:40 → 4A 14:55
PROVIDERS: ADMIT Internal Medicine; ATTEND Internal Medicine
DX: F14.10 Cocaine abuse, uncomplicated (principal); N39.0 Urinary tract infection, site not specified; N17.9 Acute kidney failure, unspecified; R94.31 Abnormal electrocardiogram [ECG] [EKG]; R07.9 Chest pain, unspecified; F17.200 Nicotine dependence, unspecified, uncomplicated; Z21 Asymptomatic human immunodeficiency virus [HIV] infection status; I10 Essential (primary) hypertension; F19.951 Other psychoactive substance use, unspecified with psychoactive substance-induced psychotic disorder with hallucinations; K21.9 Gastro-esophageal reflux disease without esophagitis
CPT/HCPCS: 36415; 71046; 78452; 80048; 80053; 80307; 80320; 81001; 82550; 83036; 84484; 85007; 85025; 87086; 93005; 93010; 93017; 96361; 99406; A9502; G0480; J0696; J1644; J2785; J7030; J7042

== ENCOUNTER 2019-02-01 11:03 | Emergency (ER) | payer MEDICARE ==
[2019-02-01 11:12] VITALS: BP 109/76
--- NOTE | 2019-02-01 11:28 | Event Note ---
ED Screening Note Date of service: 02/01/19 Time: 11:23 ED Screening Note: 63 y o male presents with lower back pain and bilat thigh aching pain with no injury also cc of feelings of FB in Eye with eye pain Right PMH: KID Dz unknown status, enlarged prostate, HTN, HIV, This initial assessment/diagnostic orders/clinical plan/treatment(s) is/are subject to change based on patients health status, clinical progression and re- assessment by fellow clinical providers in the ED. Further treatment and workup at subsequent clinical providers discretion. Patient/guardian urged not to elope from the ED as their condition may be serious if not clinically assessed and managed. Initial orders include: UA EYE KIT r/o corneal abrasion
[2019-02-01] MEDS ORDERED: BALANCED SALT IRRIG 1 DROPS, TETRACAINE 0.5% 1 DROPS, FLUORESCEIN 1 MG OU ONE (11:29)
[2019-02-01] MEDS ORDERED: TETRACAINE 0.5% OPHTH SOLN 4ML ONE (12:59)
[2019-02-01] MEDS ORDERED: FLUORESCEIN 1 MG STRIP OP ONE (12:59)
[2019-02-01] MEDS ORDERED: BALANCED SALT IRRIG (BSS) OPHTH SOLN 15 ML ONE (12:59)
--- NOTE | 2019-02-01 14:06 | Emergency Department Report ---
ED Eye Problem HPI - General Chief complaint: Eye Problems Stated complaint: BACK PAIN/OBJECT IN EYE Time Seen by Provider: 02/01/19 13:30 Source: patient Mode of arrival: Ambulatory Limitations: No Limitations - History of Present Illness Initial comments: Patient is a 63-year-old male who is complaining of a foreign body sensation right eye. Patient states he woke up with the sensation of some numbness in his eye. He says some redness with pain. Patient denies any decreased vision. She's in his right eye only. Patient also states he has chronic lower back pain is been there for months. - Related Data Previous Rx's Medication Instructions Recorded Last Taken Type Naloxone HCl [Narcan Nasal [place]] 4 mg NS Q1HR PRN #2 spray 09/14/16 Unknown Rx Famotidine [Pepcid] 20 mg PO BID #30 tablet 06/29/17 Unknown Rx Sulfamethoxazole/Trimethoprim 1 each PO BID #10 tablet 06/29/17 Unknown Rx [Bactrim Ds Tablet] Gentamicin 0.3% Ophth Soln 2 drops OP Q4H #1 bottle 02/01/19 Unknown Rx Ibuprofen [Motrin 600 MG tab] 600 mg PO Q8H PRN #20 tablet 02/01/19 Unknown Rx Naphazoline HCl/Pheniramine 2 drop OP QID #1 bottle 02/01/19 Unknown Rx [Naphcon-A Eye Drops] methOCARBAMOL [Robaxin TAB] 500 mg PO Q6H PRN #14 tablet 02/01/19 Unknown Rx Allergies Allergy/AdvReac Type Severity Reaction Status Date / Time No Known Allergies Allergy Unverified 07/27/13 21:55 ED Review of Systems ROS: Stated complaint: BACK PAIN/OBJECT IN EYE Other details as noted in HPI Comment: All other systems reviewed and negative ED Past Medical Hx - Past Medical History Previous Medical History?: Yes Hx Hypertension: Yes (no meds) Hx Heart Attack/AMI: No Hx Congestive Heart Failure: No Hx GERD: No Hx Liver Disease: Yes (hep c- no treatment) Hx Renal Disease: Yes Hx Sickle Cell Disease: No Hx Headaches / Migraines: No Hx Psychiatric Treatment: Yes (cocaine abuse) Hx HIV: Yes (anti-virals) Additional medical history: HTN denies taking any medication,enlarged prostate - Surgical History Past Surgical History?: Yes Additional Surgical History: Inguinal hernia - Social History Smoking Status: Never Smoker Substance Use Type: Cocaine - Medications Home Medications: Home Medications Medication Instructions Recorded Confirmed Last Taken Type Naloxone HCl [Narcan Nasal [place]] 4 mg NS Q1HR PRN #2 spray 09/14/16 06/29/17 Unknown Rx Famotidine [Pepcid] 20 mg PO BID #30 tablet 06/29/17 Unknown Rx Sulfamethoxazole/Trimethoprim 1 each PO BID #10 tablet 06/29/17 Unknown Rx [Bactrim Ds Tablet] Gentamicin 0.3% Ophth Soln 2 drops OP Q4H #1 bottle 02/01/19 Unknown Rx Ibuprofen [Motrin 600 MG tab] 600 mg PO Q8H PRN #20 tablet 02/01/19 Unknown Rx Naphazoline HCl/Pheniramine 2 drop OP QID #1 bottle 02/01/19 Unknown Rx [Naphcon-A Eye Drops] methOCARBAMOL [Robaxin TAB] 500 mg PO Q6H PRN #14 tablet 02/01/19 Unknown Rx ED Physical Exam - General Limitations: No Limitations General appearance: alert, in no apparent distress - Head Head exam: Present: atraumatic, normocephalic - Eye Eye exam: Present: normal appearance - Expanded Eye Exam Expanded Eyelids: Normal Inspection: Right Pupils: Regular, Round: Bilateral, Reactive: Bilateral Sclera/Conjunctival: Normal Inspection: Left, Injection: Right ( dye uptake is present) - ENT ENT exam: Present: mucous membranes moist - Neck Neck exam: Present: normal inspection - Respiratory Respiratory exam: Present: normal lung sounds bilaterally. Absent: respiratory distress - Cardiovascular Cardiovascular Exam: Present: regular rate, normal rhythm. Absent: systolic murmur, diastolic murmur, rubs, gallop - GI/Abdominal GI/Abdominal exam: Present: soft, normal bowel sounds - Rectal Rectal exam: Present: deferred - Extremities Exam Extremities exam: Present: normal inspection - Back Exam Back exam: Present: normal inspection - Neurological Exam Neurological exam: Present: alert, oriented X3 - Psychiatric Psychiatric exam: Present: normal affect, normal mood - Skin Skin exam: Present: warm, dry, intact, normal color. Absent: rash ED Course Vital Signs 02/01/19 11:10 Temperature 98.4 F Pulse Rate 76 Respiratory 16 Rate Blood Pressure 109/76 O2 Sat by Pulse 96 Oximetry ED Medical Decision Making - Medical Decision Making Visual with a small corneal abrasion. Patient started on drops will be discharged home. Critical care attestation.: If time is entered above; I have spent that time in minutes in the direct care of this critically ill patient, excluding procedure time. ED Disposition Clinical Impression: Cornea abrasion Qualifiers: Encounter type: initial encounter Laterality: right Qualified Code(s): S05.01XA - Injury of conjunctiva and corneal abrasion without foreign body, right eye, initial encounter Chronic back pain Qualifiers: Back pain location: low back pain Back pain laterality: unspecified Sciatica presence: with sciatica Sciatica laterality: sciatica laterality unspecified Qualified Code(s): M54.40 - Lumbago with sciatica, unspecified side; G89.29 - Other chronic pain Disposition: DC- TO HOME OR SELFCARE Is pt being admited?: No Does the pt Need Aspirin: No Condition: Stable Instructions: Corneal Abrasion (ED) Referrals: [facility], [facility] [Provider Group] - 3-5 Days Time of Disposition: 14:07
[2019-02-01 14:40] LABS: Bilirubin,Urine Negative (Negative); Blood,Urine SM (Negative); Color,Urine Yellow (Yellow)
[2019-02-01 14:41] LABS: Urobilinogen,Urine < 0.2 mg/dL (<2.0)
== END 2019-02-01 14:29 | disposition home or self-care (01) ==
LOC: ED 11:03
DX: S05.01XA Injury of conjunctiva and corneal abrasion without foreign body, right eye, initial encounter (principal); M54.9 Dorsalgia, unspecified; G89.29 Other chronic pain; I10 Essential (primary) hypertension; X58.XXXA Exposure to other specified factors, initial encounter; Y93.89 Activity, other specified; Y92.89 Other specified places as the place of occurrence of the external cause; Y99.8 Other external cause status
CPT/HCPCS: 81001

== ENCOUNTER 2019-02-26 22:10 | Observation (INO) | payer MEDICARE ==
[2019-02-26] MEDS ORDERED: ALUM-MAG HYDROXIDE-SIMETHICONE 200-200-20MG/5ML ORAL LIQD 30 ML PO ONE (22:21)
[2019-02-26] MEDS ORDERED: FAMOTIDINE 20 MG TAB PO ONE (22:21)
[2019-02-26] MEDS ORDERED: ACETAMINOPHEN 325 MG TAB PO ONE (22:21)
--- NOTE | 2019-02-26 22:27 | Emergency Department Report ---
ED Chest Pain HPI - General Stated Complaint: CHEST PAIN Time Seen by Provider: 02/26/19 22:20 Source: patient, EMS, old records reviewed Mode of arrival: Stretcher Limitations: No Limitations - History of Present Illness Initial Comments: Mr. Vail is a 63-year-old male with history of hypertension, HIV (unknown CD4 count), cocaine abuse who presents with chest pain for the past 2 days. He did admits to using cocaine today. +productive cough He feels fullness in his left side of the chest. He arrived per EMS. I reviewed electronic record. In 2018, Mr. Vail was admitted for chest pain evaluation. Stress test myocardial effusion scan was negative for ischemia. Th e exam was normal with ejection fraction 65%. During that admission, Chest pain was attributed to cocaine use and GERD. He receives primary medical [facility] at [facility]. Gradual onset of chest pain. No change with movement or cough. Fullness quality. No radiation. Constant in nature. Constant at rest. No association with exertion. MD Complaint: chest pain -: Gradual, days(s) (2) Onset: during rest Pain Location: left chest Pain Radiation: none Severity: moderate Severity scale (0 -10): 7 Quality: other (fullness) Consistency: constant Improves With: nothing Worsens With: nothing Treatments Prior to Arrival: aspirin (received aspirin and IV fluid therapy per EMS) - Related Data Previous Rx's Medication Instructions Recorded Last Taken Type Naloxone HCl [Narcan Nasal [place]] 4 mg NS Q1HR PRN #2 spray 09/14/16 Unknown Rx Famotidine [Pepcid] 20 mg PO BID #30 tablet 06/29/17 Unknown Rx Sulfamethoxazole/Trimethoprim 1 each PO BID #10 tablet 06/29/17 Unknown Rx [Bactrim Ds Tablet] Gentamicin 0.3% Ophth Soln 2 drops OP Q4H #1 bottle 02/01/19 Unknown Rx Ibuprofen [Motrin 600 MG tab] 600 mg PO Q8H PRN #20 tablet 02/01/19 Unknown Rx Naphazoline HCl/Pheniramine 2 drop OP QID #1 bottle 02/01/19 Unknown Rx [Naphcon-A Eye Drops] methOCARBAMOL [Robaxin TAB] 500 mg PO Q6H PRN #14 tablet 02/01/19 Unknown Rx Allergies Allergy/AdvReac Type Severity Reaction Status Date / Time No Known Allergies Allergy Unverified 07/27/13 21:55 Heart Score - HEART Score History: Slightly suspicious EKG: Normal Age: 45-65 Risk factors: 1-2 risk factors Troponin: < normal limit HEART Score: 2 ED Review of Systems ROS: Stated complaint: CHEST PAIN Other details as noted in HPI Comment: All other systems reviewed and negative Constitutional: denies: fever, malaise Respiratory: denies: cough Cardiovascular: chest pain Gastrointestinal: denies: abdominal pain, nausea, vomiting ED Past Medical Hx - Past Medical History Previous Medical History?: Yes Hx Hypertension: Yes (no meds) Hx Heart Attack/AMI: No Hx Congestive Heart Failure: No Hx GERD: No Hx Liver Disease: Yes (hep c- no treatment) Hx Renal Disease: Yes Hx Sickle Cell Disease: No Hx Headaches / Migraines: No Hx Psychiatric Treatment: Yes (cocaine abuse) Hx HIV: Yes (anti-virals) Additional medical history: HTN denies taking any medication,enlarged prostate - Surgical History Past Surgical History?: Yes Additional Surgical History: Inguinal hernia - Social History Smoking Status: Never Smoker Substance Use Type: Cocaine 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, 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 - Medications Home Medications: Home Medications Medication Instructions Recorded Confirmed Last Taken Type Naloxone HCl [Narcan Nasal [place]] 4 mg NS Q1HR PRN #2 spray 09/14/16 06/29/17 Unknown Rx Famotidine [Pepcid] 20 mg PO BID #30 tablet 06/29/17 Unknown Rx Sulfamethoxazole/Trimethoprim 1 each PO BID #10 tablet 06/29/17 Unknown Rx [Bactrim Ds Tablet] Gentamicin 0.3% Ophth Soln 2 drops OP Q4H #1 bottle 02/01/19 Unknown Rx Ibuprofen [Motrin 600 MG tab] 600 mg PO Q8H PRN #20 tablet 02/01/19 Unknown Rx Naphazoline HCl/Pheniramine 2 drop OP QID #1 bottle 02/01/19 Unknown Rx [Naphcon-A Eye Drops] methOCARBAMOL [Robaxin TAB] 500 mg PO Q6H PRN #14 tablet 02/01/19 Unknown Rx ED Physical Exam - General General appearance: alert, in no apparent distress, other (appears comfortable, no acute distress ) - Head Head exam: Present: atraumatic, normocephalic - Eye Eye exam: Present: normal appearance - ENT ENT exam: Present: mucous membranes moist - Neck Neck exam: Present: normal inspection, full ROM - Respiratory Respiratory exam: Present: normal lung sounds bilaterally. Absent: respiratory distress, wheezes, rales, rhonchi - Cardiovascular Cardiovascular Exam: Present: regular rate, normal rhythm, normal heart sounds, other (equal radial pulses). Absent: systolic murmur, diastolic murmur, rubs, gallop - GI/Abdominal GI/Abdominal exam: Present: soft, normal bowel sounds. Absent: distended, tenderness, guarding, rebound - Rectal Rectal exam: Present: deferred - Extremities Exam Extremities exam: Present: normal inspection - Neurological Exam Neurological exam: Present: alert, oriented X3 - Psychiatric Psychiatric exam: Present: normal affect, normal mood - Skin Skin exam: Present: warm, dry, intact, normal color. Absent: rash ED Course Vital Signs 02/26/19 02/26/19 22:35 22:40 Temperature 98.8 F Pulse Rate 86 Respiratory 18 18 Rate Blood Pressure 95/59 O2 Sat by Pulse 97 97 Oximetry ED Medical Decision Making - Lab Data Result diagrams: 02/26/19 22:46 02/26/19 22:46 - EKG Data 02/26/19 22:58 EKG obtained 2255 Rate 80 beats a minute normal axis normal intervals poor R-wave progression anteriorly no ST elevation biphasic T waves in the anterolateral leads EKG is unchanged from 06/27/2017 02/26/19 23:00 02/26/19 23:02 - Radiology Data Radiology results: report reviewed AP portable chest patchy airspace density with a left lower lung concerning for pneumonitis according to radiology impression, I personally reviewed the images. Suspect atelectasis versus infiltrate. - Medical Decision Making Mr. Vail has history of hypertension, cocaine abuse and HIV. He presents with left-sided chest pain for 2 days. Shortly after my evaluation and my arrival, Mr. Vail went to sleep. He appeared comfortable. He fell asleep prior to receiving further medication beyond aspirin given per EMS. He did not appear to be in pain or distress. MS ruled out with 2 troponin assays. Last year, cardiac stress test was normal with ejection fraction 65%. I do not suspect pulmonary embolism, aortic dissection, on this presentation. Chest radiograph revealed left lower lobe pneumonitis according to radiology imp ression, BUN/creatinine elevated. Mr. Vail does report cough. No fever or leukocytosis. Will admit for CAP, LAYTON. antibiotics initiated in the ED Critical care attestation.: If time is entered above; I have spent that time in minutes in the direct care of this critically ill patient, excluding procedure time. ED Disposition Clinical Impression: HIV (human immunodeficiency virus infection), Community acquired pneumonia, LAYTON (acute kidney injury) Disposition: OP ADMIT IP TO THIS HOSP Is pt being admited?: Yes Does the pt Need Aspirin: No Condition: Stable Instructions: Bacterial Pneumonia (ED)
[2019-02-26 22:58] LABS: Basophils # (Auto) 0.1 K/mm3 (0.0-0.1); Eosinophils # (Auto) 0.2 K/mm3 (0.0-0.4); Hematocrit 37.6 % (35.5-45.6); Hemoglobin 12.3 gm/dl (11.8-15.2); Lymphocytes # (Auto) 2.8 K/mm3 (1.2-5.4); Lymphocytes % (Auto) 43.1 % (13.4-35.0); Mean Corpuscular HGB Conc 33 % (32-34); Mean Corpuscular Volume 79 fl (84-94); Monocytes # (Auto) 0.9 K/mm3 (0.0-0.8); Monocytes % (Auto) 13.3 % (0.0-7.3); Platelet Count 229 K/mm3 (140-440); Red Blood Count 4.75 M/mm3 (3.65-5.03); Red Cell Distribution Width 14.7 % (13.2-15.2)
--- NOTE | 2019-02-26 23:13 | XRay Report ---
CHEST 1 VIEW INDICATION / CLINICAL INFORMATION: Chest Pain. COMPARISON: None available. FINDINGS: SUPPORT DEVICES: None. HEART / MEDIASTINUM: No significant abnormality. LUNGS / PLEURA: Patchy airspace density within the left lower lung concerning for pneumonitis. The ri ght lung is clear. Signer Name: Vahe Hernandez MD Signed: 02/26/2019 11:09 PM Workstation Name: [id number]
[2019-02-26 23:15] LABS: Alanine Aminotransferase 33 units/L (7-56); Albumin 3.6 g/dL (3.9-5); BUN/Creatinine Ratio 14; Blood Urea Nitrogen 36 mg/dL (9-20); Calcium 9.2 mg/dL (8.4-10.2); Hemolysis Index 5
[2019-02-27] MEDS ORDERED: SODIUM CHLORIDE 0.9% 1000 ML 1,000 ML IV ONE ×2 (02:24→02:57)
--- NOTE | 2019-02-27 02:45 | History and Physical Report ---
History of Present Illness Date of examination: 02/27/19 Date of admission: 02/27/19 Chief complaint: chest pain History of present illness: Hx obtained from ED note. Patient not forth coming with information. Mr. Vail is a 63-year-old male with history of hypertension, HIV (unknown CD4 count), cocaine abuse who presents with chest pain for the past 2 days. He did admits to using cocaine today. +productive cough He feels fullness in his left side of the chest. He arrived per EMS. Gradual onset of chest pain. No change with movement or cough. Fullness elinor lity. No radiation. Constant in nature. Constant at rest. No association with exertion. While he claims that he takes some medications for HIV, he was unable to provide me any information on the medication. Old record review "In 2018, Mr. Vail was admitted for chest pain evaluation. Stress test myocardial effusion scan was negative for ischemia. The exam was normal with ejection fraction 65%. During that admission, Chest pain was attributed to cocaine use and GERD." He receives primary medical care at [facility]. 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, 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 Medications and Allergies Allergies Allergy/AdvReac Type Severity Reaction Status Date / Time No Known Allergies Allergy Unverified 07/27/13 21:55 Home Medications Medication Instructions Recorded Confirmed Last Taken Type Naloxone HCl [Narcan Nasal [place]] 4 mg NS Q1HR PRN #2 spray 09/14/16 06/29/17 Unknown Rx Famotidine [Pepcid] 20 mg PO BID #30 tablet 06/29/17 Unknown Rx Sulfamethoxazole/Trimethoprim 1 each PO BID #10 tablet 06/29/17 Unknown Rx [Bactrim Ds Tablet] Gentamicin 0.3% Ophth Soln 2 drops OP Q4H #1 bottle 02/01/19 Unknown Rx Ibuprofen [Motrin 600 MG tab] 600 mg PO Q8H PRN #20 tablet 02/01/19 Unknown Rx Naphazoline HCl/Pheniramine 2 drop OP QID #1 bottle 02/01/19 Unknown Rx [Naphcon-A Eye Drops] methOCARBAMOL [Robaxin TAB] 500 mg PO Q6H PRN #14 tablet 02/01/19 Unknown Rx Active Meds: Active Medications Sodium Chloride (Nacl 0.9% 1000 Ml) 1,000 mls @ 999 mls/hr IV BOLUS ONE Stop: 02/27/19 03:24 Ceftriaxone Sodium (Rocephin/Ns 2 Gm/100 Ml) 2 gm in 100 mls @ 200 mls/hr IV Q24HR HIMANSHU; Protocol Azithromycin 500 mg/ Sodium (Chloride) 250 mls @ 250 mls/hr IV Q24HR HIMANSHU; Protocol Review of Systems All systems: negative (pateint refused to discuss) Constitutional: no weight loss, no weight gain, no fever, no chills, no sweats, no night sweats, no anorexia, no fatigue, no lethargy Cardiovascular: chest pain, shortness of breath Respiratory: no cough, no cough with sputum, no excessive sputum, no shortness of breath Exam - Constitutional Vitals: Temp Pulse Resp BP Pulse Ox 98.8 F 86 18 95/59 97 02/26/19 22:35 02/26/19 22:35 02/26/19 22:40 02/26/19 22:35 02/26/19 22:40 General appearance: Present: no acute distress, well-nourished, other (sleeping, awakes but goes back to sleep) - EENT Eyes: Present: PERRL, EOM intact ENT: clear oral mucosa - Neck Neck: Present: supple, normal ROM - Respiratory Respiratory effort: normal Respiratory: bilateral: CTA - Cardiovascular Rhythm: regular Heart Sounds: Present: S1 & S2. Absent: systolic murmur, diastolic murmur - Extremities Extremities: no ischemia, pulses intact, pulses symmetrical, No edema, normal temperature, normal color, Full ROM Peripheral Pulses: within normal limits - Abdominal General gastrointestinal: Present: soft, non-tender, non-distended - Integumentary Integumentary: Present: warm (tattoo to upper ext) - Musculoskeletal Musculoskeletal: other (unable to perform due to patients not allowing) - Psychiatric Psychiatric: other (drowsy) - Neurologic Neurologic: moves all extremities - Allied Health Allied health notes reviewed: nursing Results - Labs CBC & Chem 7: 02/26/19 22:46 02/26/19 22:46 Labs: Laboratory Last Values WBC 6.4 K/mm3 (4.5-11.0) 02/26/19 22:46 RBC 4.75 M/mm3 (3.65-5.03) 02/26/19 22:46 Hgb 12.3 gm/dl (11.8-15.2) 02/26/19 22:46 Hct 37.6 % (35.5-45.6) 02/26/19 22:46 MCV 79 fl (84-94) L 02/26/19 22:46 MCH 26 pg (28-32) L 02/26/19 22:46 MCHC 33 % (32-34) 02/26/19 22:46 RDW 14.7 % (13.2-15.2) 02/26/19 22:46 Plt Count 229 K/mm3 (140-440) 02/26/19 22:46 Lymph % (Auto) 43.1 % (13.4-35.0) H 02/26/19 22:46 [place] % (Auto) 13.3 % (0.0-7.3) H 02/26/19 22:46 Eos % (Auto) 3.0 % (0.0-4.3) 02/26/19 22:46 Baso % (Auto) 1.0 % (0.0-1.8) 02/26/19 22:46 Lymph # 2.8 K/mm3 (1.2-5.4) 02/26/19 22:46 [place] # 0.9 K/mm3 (0.0-0.8) H 02/26/19 22:46 Eos # 0.2 K/mm3 (0.0-0.4) 02/26/19 22:46 Baso # 0.1 K/mm3 (0.0-0.1) 02/26/19 22:46 Seg Neutrophils % 39.6 % (40.0-70.0) L 02/26/19 22:46 Seg Neutrophils # 2.6 K/mm3 (1.8-7.7) 02/26/19 22:46 Sodium 135 mmol/L (137-145) L 02/26/19 22:46 Potassium 3.8 mmol/L (3.6-5.0) 02/26/19 22:46 Chloride 100.2 mmol/L (98-107) 02/26/19 22:46 Carbon Dioxide 20 mmol/L (22-30) L 02/26/19 22:46 Anion Gap 19 mmol/L 02/26/19 22:46 BUN 36 mg/dL (9-20) H 02/26/19 22:46 Creatinine 2.5 mg/dL (0.8-1.5) H 02/26/19 22:46 Estimated GFR 32 ml/min 02/26/19 22:46 BUN/Creatinine Ratio 14 % 02/26/19 22:46 Glucose 129 mg/dL (75-100) H 02/26/19 22:46 Calcium 9.2 mg/dL (8.4-10.2) 02/26/19 22:46 Total Bilirubin 0.50 mg/dL (0.1-1.2) 02/26/19 22:46 AST 31 units/L (5-40) 02/26/19 22:46 ALT 33 units/L (7-56) 02/26/19 22:46 Alkaline Phosphatase 99 units/L (35-129) 02/26/19 22:46 Troponin T < 0.010 ng/mL (0.00-0.029) 02/27/19 01:17 Total Protein 9.1 g/dL (6.3-8.2) H 02/26/19 22:46 Albumin 3.6 g/dL (3.9-5) L 02/26/19 22:46 Albumin/Globulin Ratio 0.7 % 02/26/19 22:46 Assessment and Plan Assessment and plan: Hx obtained from ED note. Patient not forth coming with information. Mr. Vail is a 63-year-old male with history of hypertension, HIV (unknown CD4 count), cocaine abuse who presents with chest pain for the past 2 days. He did admits to using cocaine today. +productive cough He feels fullness in his left side of the chest. He arrived per EMS. Gradual onset of chest pain. No change with movement or cough. Fullness quality. No radiation. Constant in nature. Constant at rest. No association with exertion. While he claims that he takes some medications for HIV, he was unable to provide me any information on the medication. Old record review "In 2018, Mr. Vail was admitted for chest pain evaluation. Stress test myocardial effusion scan was negative for ischemia. The exam was normal with ejection fraction 65%. During that admission, Chest pain was attributed to cocaine use and GERD." He receives primary medical care at [facility]. * AP portable chest patchy airspace density with a left lower lung concerning for pneumonitis according to radiology impression, I personally reviewed the images. Suspect atelectasis versus infiltrate. Atypical chest Pain Pneumonia on an immunocompressed patient LAYTON secondary to vasomotor nephropathy Hypotension Substance abuse- Cocain GERD HIV PLAN Place in observation Continue abx as started in the ED Nurse to assist with obtaining full home meds Including retrovirals and can be started I believe less likely Pneumonia but possible some inflammatory changes in the lungs leading to pleuritic chest pain Stress test but will defer to cardiology consulted Echo to see if any structural damage from cocain. Patient needs to be complaint with treatment and also quit tobacco and cocain use Chest pain protocol UDS DVT/GI prophy Plan discussed with Nurse also with the patient. Advance Directives: Yes Plan of care discussed with patient/family: Yes
[2019-02-27] MEDS ORDERED: NITROGLYCERIN 0.4 MG TAB SUBL SL PRN (02:54)
[2019-02-27] MEDS ORDERED: ALBUTEROL 2.5 MG/3 ML NEBU IH PRN (02:54)
[2019-02-27] MEDS ORDERED: ONDANSETRON 4 MG/2 ML INJ IV PRN (02:54)
[2019-02-27] MEDS ORDERED: NALOXONE 0.4 MG/1 ML INJ IV PRN (02:54)
[2019-02-27] MEDS ORDERED: ACETAMINOPHEN 325 MG TAB PO PRN (02:54)
[2019-02-27] MEDS ORDERED: SODIUM CHLORIDE 0.9% 1000 ML 1,000 ML IV SCH (03:00)
[2019-02-27] MEDS: cefTRIAXone/NS 2 GM/100 ML 2 GM/100 ML BAG IV SCH ×2 (03:29→11:13)
[2019-02-27 03:37] LABS: Hematocrit 37.8 % (35.5-45.6); Hemoglobin 12.5 gm/dl (11.8-15.2); Mean Corpuscular HGB Conc 33 % (32-34); Mean Corpuscular Volume 79 fl (84-94); Platelet Count 234 K/mm3 (140-440); Red Blood Count 4.77 M/mm3 (3.65-5.03)
[2019-02-27] MEDS: AZITHROMYCIN 500 MG in SODIUM CHLORIDE 0.9% 250ML 250 ML IV SCH ×2 (04:09→11:13)
[2019-02-27 05:09] LABS: Basophils % (Manual) 0 % (0.0-1.8); Total Cells Counted 100
[2019-02-27 05:10] LABS: Platelet Estimate Consistent w Auto; Target Cells Rare
[2019-02-27 05:17] LABS: Calcium 9.3 mg/dL (8.4-10.2)
[2019-02-27] MEDS: GENTAMICIN 0.3% OPHTH SOLN 5 ML OU SCH ×4 (05:52→11:15)
[2019-02-27 06:13] LABS: Chol/HDL Ratio 5.27 %
[2019-02-27] MEDS: MORPHINE 2 MG/1 ML INJ IV PRN ×2 (06:36→13:23)
[2019-02-27] MEDS ORDERED: REGADENOSON 0.4 MG/5 ML INJ IV ONE (08:00)
[2019-02-27] MEDS ORDERED: AZITHROMYCIN 500 MG in SODIUM CHLORIDE 0.9% 250ML 250 ML IV SCH (10:00)
[2019-02-27] MEDS ORDERED: FAMOTIDINE 20 MG TAB PO SCH (10:00)
[2019-02-27] MEDS: IPRATROPIUM/ALBUTEROL SULFATE 3 ML AMPUL.NEB IH SCH ×3 (11:09→15:12)
[2019-02-27] MEDS: NAPHAZOLINE/PHENIRAMINE 0.025/0.3% OPHTH SOLN 15 ML OU SCH ×3 (11:14→18:19)
--- NOTE | 2019-02-27 11:28 | Consultation ---
History of Present Illness Consult date: 02/27/19 Consult reason: chest pain History of present illness: Impression Seen in stress lab Chest pain since around the time of last cocaine use Drug abuse (cigs/cocaine) HTN HIV Plan Nuclear stress normal , EF 58%, no ischemia No futher inpt workup, pt low risk for CV event. Advise lifestyle changes Past History Past Medical History: HIV/AIDS, hypertension Social history: smoking Family history: no significant family history Medications and Allergies Allergies Allergy/AdvReac Type Severity Reaction Status Date / Time No Known Allergies Allergy Unverified 07/27/13 21:55 Home Medications Medication Instructions Recorded Confirmed Last Taken Type Abacavir/Dolutegravir/Lamivudi 1 each PO QDAY 02/27/19 02/27/19 Unknown History [Triumeq 600-50-300 mg Tablet] Tamsulosin [Flomax] 0.4 mg PO QDAY 02/27/19 02/27/19 Unknown History Active Meds: Active Medications Acetaminophen (Tylenol) 650 mg PO Q4H PRN PRN Reason: Pain MILD(1-3)/Fever >100.5/FRIAS Albuterol (Proventil) 2.5 mg IH Q3HRT PRN PRN Reason: Shortness Of Breath Albuterol/Ipratropium (Duoneb *Not For Prn Use*) 1 ampul IH Q6HRT HIMANSHU Last Admin: 02/27/19 11:09 Dose: 1 ampul Documented by: Aspirin (Baby Aspirin) 81 mg PO QDAY HIMANSHU Atorvastatin Calcium (Lipitor) 40 mg PO QHS HIMANSHU Famotidine (Pepcid) 20 mg PO QAM HIMANSHU Last Admin: 02/27/19 11:14 Dose: 20 mg Documented by: Ceftriaxone Sodium (Rocephin/Ns 2 Gm/100 Ml) 2 gm in 100 mls @ 200 mls/hr IV Q24HR HIMANSHU; Protocol Last Admin: 02/27/19 11:13 Dose: 200 mls/hr Documented by: Azithromycin 500 mg/ Sodium (Chloride) 250 mls @ 250 mls/hr IV Q24HR HIMANSHU; Protocol Last Admin: 02/27/19 11:13 Dose: 250 mls/hr Documented by: Sodium Chloride (Nacl 0.9% 1000 Ml) 1,000 mls @ 150 mls/hr IV DIRECT HIMANSHU Last Admin: 02/27/19 06:31 Dose: 75 mls/hr Documented by: Methocarbamol (Robaxin) 500 mg PO Q6H PRN PRN Reason: Muscle Spasm Morphine Sulfate (Morphine) 2 mg IV Q4H PRN PRN Reason: Pain, Moderate (4-6) Last Admin: 02/27/19 06:36 Dose: 2 mg Documented by: Naloxone HCl (Naloxone) 0.1 mg IV Q2MIN PRN PRN Reason: Res Rate </= 8 or 02 SAT < 92% Naphazoline HCl/Pheniramine Maleate (Visine-A) 2 drops OU QID [facility] Last Admin: 02/27/19 11:14 Dose: 2 drops Documented by: Nitroglycerin (Nitrostat) 0.4 mg SL Q5M PRN PRN Reason: Chest Pain Ondansetron HCl (Zofran) 4 mg IV Q8H PRN PRN Reason: Nausea And Vomiting Sodium Chloride (Sodium Chloride Flush Syringe 10 Ml) 10 ml IV BID [facility] Last Admin: 02/27/19 11:14 Dose: 10 ml Documented by: Sodium Chloride (Sodium Chloride Flush Syringe 10 Ml) 10 ml IV PRN PRN PRN Reason: LINE FLUSH Review of Systems All systems: negative (stated in impression) Physical Examination Vital Signs Temp Pulse Resp BP Pulse Ox 98.8 F 86 18 95/59 97 02/26/19 22:35 02/26/19 22:35 02/26/19 22:35 02/26/19 22:35 02/26/19 22:35 General appearance: no acute distress HEENT: Positive: PERRL Neck: Positive: neck supple Cardiac: Positive: Reg Rate and Rhythm, S1/S2 Lungs: Positive: Normal Exam Neuro: Positive: Grossly Intact Abdomen: Positive: Unremarkable. Negative: Pulsations/Bruits Extremities: Absent: edema Results 02/27/19 03:11 02/27/19 03:11 Cardiac Enzymes 02/26/19 Range/Units 22:46 AST 31 (5-40) units/L Lipids 02/27/19 Range/Units 03:11 Triglycerides 117 (2-149) mg/dL Cholesterol 174 (50-199) mg/dL HDL Cholesterol 33 L (40-59) mg/dL Cholesterol/HDL Ratio 5.27 % CBC 11/29/19 11/30/19 Range/Units 22:46 03:11 WBC 6.4 6.2 (4.5-11.0) K/mm3 RBC 4.75 4.77 (3.65-5.03) M/mm3 Hgb 12.3 12.5 (11.8-15.2) gm/dl Hct 37.6 37.8 (35.5-45.6) % Plt Count 229 234 (140-440) K/mm3 Lymph # 2.8 (1.2-5.4) K/mm3 [place] # 0.9 H (0.0-0.8) K/mm3 Eos # 0.2 (0.0-0.4) K/mm3 Baso # 0.1 (0.0-0.1) K/mm3 Comprehensive Metabolic Panel 02/26/19 02/27/19 Range/Units 22:46 03:11 Sodium 135 L 138 (137-145) mmol/L Potassium 3.8 4.1 (3.6-5.0) mmol/L Chloride 100.2 107.5 H (98-107) mmol/L Carbon Dioxide 20 L 21 L (22-30) mmol/L BUN 36 H 38 H (9-20) mg/dL Creatinine 2.5 H 2.5 H (0.8-1.5) mg/dL Glucose 129 H 112 H (75-100) mg/dL Calcium 9.2 9.3 (8.4-10.2) mg/dL AST 31 (5-40) units/L ALT 33 (7-56) units/L Alkaline Phosphatase 99 (35-129) units/L Total Protein 9.1 H (6.3-8.2) g/dL Albumin 3.6 L (3.9-5) g/dL
--- NOTE | 2019-02-27 14:07 | Ultrasound Report ---
ULTRASOUND RENAL INDICATION: chris. COMPARISON: No relevant prior imaging study available. FINDINGS: RIGHT KIDNEY: Size: 10.5 cm. Echogenicity: Normal. Cortical thickness: Normal. Stones: None. Hydronephrosis: None. Cyst or mass: None. LEFT KIDNEY: Size: 11.5 cm. Echogenicity: Normal. Cortical thickness: Normal. Stones: None. Hydronephrosis: None. Cyst or mass: 1.3 cm cyst. Urinary Bladder: No significant abnormality. Free Fluid: None. Additional Findings: There is mild enlargement of the prostate measures 5.7 x 5.8 cm. IMPRESSION 1. No acute sonographic abnormality of the kidneys. There is a small cyst in the left kidney. There i s mild enlargement of the prostate. Signer Name: Arpti Nicholson MD Signed: 02/27/2019 2:03 PM Workstation Name: [id number]
[2019-02-27 14:53] LABS: Calcium 8.7 mg/dL (8.4-10.2)
--- NOTE | 2019-02-27 15:22 | Discharge Summary ---
Providers - Providers Date of Admission: 02/27/19 02:33 Attending physician: CARYN KING MD 02/27/19 Consult to Cardiac Rehabilitation [CONS] Routine Reason For Exam: Phase I 02/27/19 02:58 Consult to Physician [CONS] Routine Comment: Consulting Provider: MARIETTA HASSAN Physician Instructions: Reason For Exam: chest pain Primary care physician: [facility] Hospitalization Reason for admission: chest pain Condition: Stable Hospital course: Mr. Vail is a 63-year-old male with history of hypertension, HIV (unknown CD4 count), cocaine abuse who presents with chest pain for the past 2 days. He did admits to using cocaine today. +productive cough He feels fullness in his left side of the chest. He arrived per EMS. Gradual onset of chest pain. No change with movement or cough. Fullness quality. No radiation. Constant in nature. Constant at rest. No association with exertion. While he claims that he takes some medications for HIV, he was unable to provide me any information on the medication. Old record review "In 2018, Mr. Vail was admitted for chest pain evaluation. Stress test myocardial effusion scan was negative for ischemia. The exam was normal with ejection fraction 65%. During that admission, Chest pain was attributed to cocaine use and GERD." Patient had stress test that was done and was noted to be negative and cardiology did evaluate the patient and recommended discharge extensive counseling was given to the patient verbalized understanding. 50 minutes of counseling provided. Atypical chest pain secondary to GERD Substance abuse Acute Cystitis BPH HIV Disposition: - TO HOME OR SELFCARE Time spent for discharge: 35 mins Core Measure Documentation - Palliative Care Palliative Care/ Comfort Measures: Not Applicable - Core Measures Any of the following diagnoses?: none Exam - Physical Exam Narrative exam: VITAL SIGNS: Reviewed. GENERAL: The patient appears normally developed, Vital signs as documented. HEAD: No signs of head trauma. EYES: Pupils are equal. Extraocular motions intact. EARS: Hearing grossly intact. MOUTH: Oropharynx is normal. NECK: No adenopathy, no JVD. CHEST: Chest with clear breath sounds bilaterally. No wheezes, rales, or rhonchi. CARDIAC: Regular rate and rhythm. S1 and S2, without murmurs, gallops, or rubs. VASCULAR: No Edema. Peripheral pulses normal and equal in all extremities. ABDOMEN: Soft, non tender and non distended. No rebound or guarding, and no masses palpated. Bowel Sounds normal. MUSCULOSKELETAL: Good range of motion of all major joints. Extremities without clubbing, cyanosis or edema. NEUROLOGIC EXAM: Alert and oriented x 3 No focal sensory or strength deficits . Speech normal. Follows commands. PSYCHIATRIC: Mood normal. SKIN: detial exam as documented in skin assessment - Constitutional Vitals: Temp Pulse Resp BP Pulse Ox 98.8 F 84 18 119/71 98 02/26/19 22:35 02/27/19 15:14 02/27/19 15:14 02/27/19 09:51 02/27/19 05:14 Plan Activity: advance as tolerated, up only with assistance Diet: low fat Special Instructions: smoking cessation, other (must quit cocaine use) Follow up with: PRIMARY CARE, [Primary Care Provider] - 7 Days [facility] [Outside] - [address] [facility] [Outside] - 7 Days Prescriptions: AtorvaSTATin [Lipitor] 40 mg PO QHS #30 tablet Azithromycin 500 mg PO DAILY #5 tablet Ciprofloxacin HCl [Ciprofloxacin TAB] 500 mg PO Q12HR #6 tab Famotidine [Pepcid] 20 mg PO QAM #20 tablet methOCARBAMOL [Robaxin TAB] 500 mg PO Q6H PRN #30 tablet PRN Reason: Muscle Spasm
[2019-02-27 15:35] LABS: Bacteria,Urine 1+ /HPF (Negative); Bilirubin,Urine NEG (Negative); Blood,Urine MOD (Negative); Color,Urine Yellow (Yellow); Hyaline Casts,Urine 5 /LPF; Mucus,Urine FEW /HPF; Protein,Urine <15 mg/dL mg/dL (Negative); Urobilinogen,Urine < 2.0 mg/dL (<2.0)
[2019-02-27] MEDS ORDERED: FLU VACC QUAD 2019-20 (3 YR UP)/PF 60 MCG/0.5 ML SYRINGE IM ONE (17:00)
[2019-02-27 19:13] VITALS: BP 93/53
[2019-02-28] MEDS ORDERED: ASPIRIN 81 MG TAB CHEW PO SCH (10:00)
[2019-03-06 11:36] LABS: CD19, Absolute SEE SCANNED RESULT; CD3, Absolute SEE SCANNED RESULT; CD3, Percentage SEE SCANNED RESULT; CD4, Absolute SEE SCANNED RESULT; CD4, Percentage SEE SCANNED RESULT; CD4/CD8 Ratio SEE SCANNED RESULT; CD8, Absolute SEE SCANNED RESULT; CD8, Percentage SEE SCANNED RESULT; Lymphocytes, Absolute SEE SCANNED RESULT
== END 2019-02-27 19:00 | disposition home or self-care (01) ==
LOC: ED 22:10 → 3A 02-27 02:33 → INTOOBSV 02-27 02:33
PROVIDERS: ADMIT Internal Medicine; ATTEND Internal Medicine
DX: R07.89 Other chest pain (principal); N17.9 Acute kidney failure, unspecified; I10 Essential (primary) hypertension; F14.10 Cocaine abuse, uncomplicated; B20 Human immunodeficiency virus [HIV] disease; N40.0 Benign prostatic hyperplasia without lower urinary tract symptoms; J18.9 Pneumonia, unspecified organism; I95.9 Hypotension, unspecified; K21.9 Gastro-esophageal reflux disease without esophagitis; Z98.890 Other specified postprocedural states
CPT/HCPCS: 36415; 71045; 76770; 78452; 80048; 80053; 80061; 81001; 82024; 84484; 85007; 85025; 87040; 87086; 87116; 90686; 93005; 93010; 93017; 94640; 96360; 96361; 96365; 96366; 96367; 96368; 96375; 96376; 99284; A9502; G0378; J0456; J0696; J2270; J2785; J7030; J7050

== ENCOUNTER 2021-08-25 21:21 | Inpatient (IN) | payer MEDICARE ==
--- NOTE | 2021-08-25 22:29 | Emergency Department Report ---
HPI - General Chief Complaint: Weakness Time Seen by Provider: 08/25/21 22:07 - HPI HPI: Room 21 The patient is a six 5-year-old male present with chief complaint of weakness and chest pain. The patient states she received the vaccine for shingles and COVID yesterday. The patient states last night he began to feel diffusely weak and had an episode of shortness of breath. The patient states when he tried to urinate nothing will come out however after he sat down he began to urinate. The patient admits to cocaine use last night. The patient states tonight he developed pain in his left chest described as a constant cramping pain associated with shortness of breath. Patient denies nausea/vomiting or diaphoresis. Patient continues have pain in his back for several months when he says he was diagnosed with "damage nerves" in his back last year. The patient states this has not changed. 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 Compliant with medication) Additional medical history: HTN denies taking any medication,enlarged prostate - Surgical History Past Surgical History?: Yes Additional Surgical History: Inguinal hernia - Family History Family history: no significant - Social History Smoking Status: Current Every Day Smoker (1/7 pack/day) Substance Use Type: Alcohol (Occasional), Cocaine - Medications Home Medications: Home Medications Medication Instructions Recorded Confirmed Last Taken Type Abacavir/Dolutegravir/Lamivudi 1 each PO QDAY 02/27/19 07/09/21 07/05/21 History [Triumeq 600-50-300 mg Tablet] AtorvaSTATin [Lipitor] 40 mg PO QHS #30 tablet 02/27/19 07/09/21 07/05/21 Rx Famotidine [Pepcid] 20 mg PO QAM #20 tablet 02/27/19 07/09/21 07/05/21 Rx Tamsulosin [Flomax] 0.4 mg PO QDAY 02/27/19 07/09/21 07/05/21 History Escitalopram [Lexapro] 5 mg PO QDAY #30 tablet 07/10/21 Unknown Rx Mirtazapine [Remeron 15mg TAB] 7.5 mg PO QHS #30 tablet 07/10/21 Unknown Rx methOCARBAMOL [Robaxin TAB] 500 mg PO Q6H PRN tablet 07/10/21 Unknown Rx ED Review of Systems ROS: Stated complaint: WEAKNESS/ BACK PAIN/CANT CONTROL URINE Other details as noted in HPI Constitutional: weakness. denies: diaphoresis, fever Eyes: denies: eye pain ENT: denies: throat pain Respiratory: shortness of breath Cardiovascular: chest pain Endocrine: no symptoms reported Gastrointestinal: denies: nausea, vomiting Genitourinary: other (Urinary retention). denies: dysuria Musculoskeletal: back pain Neurological: denies: headache Physical Exam - Physical Exam Vital Signs: Vital Signs 08/25/21 21:23 Temperature 98.4 F Pulse Rate 95 H Respiratory 18 Rate Blood Pressure 143/83 O2 Sat by Pulse 95 Oximetry Physical Exam: GENERAL: The patient is well-developed well-nourished male lying on stretcher not appearing to be in acute distress. [] HEENT: Normocephalic. Atraumatic. Extraocular motions are intact. Patient has moist mucous membranes. NECK: Supple. Trachea midline CHEST/LUNGS: Clear to auscultation. There is no respiratory distress noted. HEART/CARDIOVASCULAR: Regular. There is no tachycardia. There is no gallop rub or murmur. ABDOMEN: Abdomen is soft, nontender. Patient has normal bowel sounds. There is no abdominal distention. SKIN: There is no rash. There is no edema. There is no diaphoresis. NEURO: The patient is awake, alert, and oriented. The patient is cooperative. 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 The pa teofilo has normal speech. GCS 15 MUSCULOSKELETAL: There is no evidence of acute injury. ED Course Vital Signs 08/25/21 21:23 Temperature 98.4 F Pulse Rate 95 H Respiratory 18 Rate Blood Pressure 143/83 O2 Sat by Pulse 95 Oximetry ED Medical Decision Making - Lab Data Result diagrams: 08/25/21 22:49 Laboratory Tests 08/25/21 08/25/21 08/25/21 22:49 22:49 22:49 Sodium 141 Potassium 3.9 Chloride 104.1 Carbon Dioxide 20 L Anion Gap 21 BUN 21 H Creatinine 1.5 H Estimated GFR 56 BUN/Creatinine Ratio 14 Glucose 82 Calcium 10.4 H Magnesium 2.20 Total Bilirubin 1.10 AST 25 ALT 31 Alkaline Phosphatase 102 Total Creatine Kinase 94 CK-MB (CK-2) 1.4 CK-MB (CK-2) Rel Index 1.4 Troponin T < 0.010 Total Protein 10.0 H Albumin 4.0 Albumin/Globulin Ratio 0.7 TSH 1.700 Free T4 1.31 Plasma/Serum Alcohol < 0.01 - EKG Data -: EKG Interpreted by Me EKG shows normal: sinus rhythm Rate: normal - EKG Data When compared to previous EKG there are: previous EKG unavailable Interpretation: unchanged when compared t (07/08/2021), nonspecific ST-T wave ni (T wave inversions in leads I, V5, V6) - Radiology Data Radiology results: report reviewed (Chest x-ray), image reviewed (Chest x-ray) interpreted by me: Chest x-ray-no definite focal infiltrates, no pneumothorax [facility] [address] [place] [address] XRay Report Signed Patient: VALERIE GONGORA MR#: [id number] : 1955 Acct:[id number] Age/Sex: 65 / M ADM Date: 08/25/21 Loc: ED Attending Dr: Ordering Physician: PHILIP SAL MD Date of Service: 08/25/21 Procedure(s): XR chest 1V ap Accession Number(s): [id number] cc: PHILIP SAL MD Fluoro Time In Minutes: CHEST 1 VIEW INDICATION / CLINICAL INFORMATION: chest pain. COMPARISON: Chest x-ray 07/08/2021 FINDINGS: SUPPORT DEVICES: None. HEART / MEDIASTINUM: No significant abnormality. LUNGS / PLEURA: Minimal increased interstitial markings in the lower chest are nonspecific and may reflect interstitial pulmonary edema. BONES: No significant osseous abnormality. ADDITIONAL FINDINGS: No significant additional findings. IMPRESSION: 1. Mild interstitial pulmonary edema within the lower chest not excluded. Signer Name: Valerie Manuel II, MD Signed: 08/26/2021 12:52 AM Workstation Name: [id number] Transcribed By: TYREE Dictated By: VALERIE MANUEL II, MD Electronically Authenticated By: VALERIE MANUEL II, MD Signed Date/Time: 08/26/2151 DD/ 0051 TD/TT: - Differential Diagnosis Cocaine chest pain, UTI, urinary retention, vaccine reaction Critical care attestation.: If time is entered above; I have spent that time in minutes in the direct care of this critically ill patient, excluding procedure time. ED Disposition Clinical Impression: Chest pain Disposition: ADMITTED INPATIENT Is pt being admited?: Yes Does the pt Need Aspirin: Yes Condition: Stable Instructions: Nonspecific Chest Pain, Adult Time of Disposition: 01:36 (Care transferred to hospitalist (Dr Buchanan)) Heart Score - HEART Score History: Moderately suspicious EKG: Non-specific Age: > 65 Risk factors: > 3 risk factors or hx of atherosclerotic disease Troponin: < normal limit HEART Score: 6 - EKG Read Time Time EKG Completed: 00:30 EKG Read Time: 00:36
[2021-08-26 00:02] LABS: Creatine Kinase MB 1.4 ng/mL (0.0-4.0)
[2021-08-26 00:04] LABS: Alanine Aminotransferase 31 units/L (7-56); BUN/Creatinine Ratio 14; Blood Urea Nitrogen 21 mg/dL (9-20); Calcium 10.4 mg/dL (8.4-10.2); Hemolysis Index 2
[2021-08-26 00:15] LABS: Free T4 (Free Thyroxine) 1.31 ng/dL (0.76-1.46)
--- NOTE | 2021-08-26 00:56 | XRay Report ---
CHEST 1 VIEW INDICATION / CLINICAL INFORMATION: chest pain. COMPARISON: Chest x-ray 07/08/2021 FINDINGS: SUPPORT DEVICES: None. HEART / MEDIASTINUM: No significant abnormality. LUNGS / PLEURA: Minimal increased interstitial markings in the lower chest are nonspecific and may re flect interstitial pulmonary edema. BONES: No significant osseous abnormality. ADDITIONAL FINDINGS: No significant additional findings. IMPRESSION: 1. Mild interstitial pulmonary edema within the lower chest not excluded. Signer Name: Pipe Galindo II, MD Signed: 08/26/2021 12:52 AM Workstation Name: [id number]
[2021-08-26] MEDS ORDERED: NITROGLYCERIN 2% OINT 1 GM TP ONE (01:37)
[2021-08-26] MEDS ORDERED: fentaNYL 100 MCG/2 ML INJ IV ONE (01:37)
[2021-08-26] MEDS ORDERED: ONDANSETRON 4 MG/2 ML INJ IV ONE (01:37)
[2021-08-26] MEDS ORDERED: ASPIRIN 325 MG TAB PO ONE (01:37)
[2021-08-26 02:30] LABS: Basophils % (Auto) 0.5 % (0.0-1.8); Eosinophils # (Auto) 0.1 K/mm3 (0.0-0.4); Eosinophils % (Auto) 1.1 % (0.0-4.3); Hematocrit 44.1 % (35.5-45.6); Hemoglobin 14.4 gm/dl (11.8-15.2); Lymphocytes % (Auto) 35.6 % (13.4-35.0); Mean Corpuscular HGB Conc 33 % (32-34); Mean Corpuscular Volume 78 fl (84-94); Monocytes # (Auto) 0.9 K/mm3 (0.0-0.8); Monocytes % (Auto) 10.5 % (0.0-7.3); Platelet Count 236 K/mm3 (140-440); Red Blood Count 5.67 M/mm3 (3.65-5.03); Red Cell Distribution Width 15.5 % (13.2-15.2)
[2021-08-26] MEDS ORDERED: ACETAMINOPHEN 325 MG TAB PO PRN ×2 (02:38)
[2021-08-26] MEDS ORDERED: ONDANSETRON 4 MG/2 ML INJ IV PRN (02:38)
[2021-08-26] MEDS ORDERED: MORPHINE 4 MG/1 ML INJ IV PRN (02:38)
[2021-08-26] MEDS ORDERED: MORPHINE 2 MG/1 ML INJ IV PRN ×2 (02:38)
[2021-08-26] MEDS ORDERED: traMADol 50 MG TAB PO PRN (02:38)
[2021-08-26] MEDS ORDERED: MAGNESIUM HYDROXIDE (MOM) ORAL LIQD UDC PO PRN (02:38)
--- NOTE | 2021-08-26 02:58 | History and Physical Report ---
History of Present Illness Date of examination: 08/26/21 Date of admission: 08/26/2021 Chief complaint: Chest Pain History of present illness: 65-year-old male with significant past medical history of HIV with unknown CD4 counts, hepatitis C, history of CVA and hypertension presenting to the emergency room today complaining of chest pain and generalized weakness. Patient states that he got the shingles vaccine and a COVID vaccination yesterday and thereafter started feeling weak. Patient also admits to using cocaine yesterday. Complains of left-sided chest p ain which felt like pressure and associated shortness of breath today. He denies any nausea vomiting, denies any abdominal pain. Denies any headache or dizziness and denies any diaphoresis. Work-up in the emergency room today including EKG, troponin has been unremarkable. Chest x-ray however shows mild interstitial pulmonary edema. Patient is being admitted for chest pain evaluation. Past History Past Medical History: hypertension, hyperlipidemia, liver disease (Hep.C,), renal failure, other (HIV with unknown CD4 count) Past Surgical History: hernia repair Social history: smoking (Current daily smoker), alcohol abuse, other (Uses cocaine occasionally) Family history: no significant family history Medications and Allergies Allergies Allergy/AdvReac Type Severity Reaction Status Date / Time No Known Allergies Allergy Unverified 07/27/13 21:55 Home Medications Medication Instructions Recorded Confirmed Last Taken Type Abacavir/Dolutegravir/Lamivudi 1 each PO QDAY 02/27/19 07/09/21 07/05/21 History [Triumeq 600-50-300 mg Tablet] AtorvaSTATin [Lipitor] 40 mg PO QHS #30 tablet 02/27/19 07/09/21 07/05/21 Rx Famotidine [Pepcid] 20 mg PO QAM #20 tablet 02/27/19 07/09/21 07/05/21 Rx Tamsulosin [Flomax] 0.4 mg PO QDAY 02/27/19 07/09/21 07/05/21 History Escitalopram [Lexapro] 5 mg PO QDAY #30 tablet 07/10/21 Unknown Rx Mirtazapine [Remeron 15mg TAB] 7.5 mg PO QHS #30 tablet 07/10/21 Unknown Rx methOCARBAMOL [Robaxin TAB] 500 mg PO Q6H PRN tablet 07/10/21 Unknown Rx Active Meds: Active Medications Acetaminophen (Acetaminophen 325 Mg Tab) 650 mg PO Q4H PRN PRN Reason: Pain MILD(1-3)/Fever >100.5/FRIAS Acetaminophen (Acetaminophen 325 Mg Tab) 650 mg PO Q6H PRN PRN Reason: Pain, Mild (1-3) Aspirin (Aspirin Ec 325 Mg Tab) 325 mg PO QDAY HIMANSHU Magnesium Hydroxide (Magnesium Hydroxide (Mom) Oral Liqd Udc) 30 ml PO Q4H PRN PRN Reason: Constipation Morphine Sulfate (Morphine 2 Mg/1 Ml Inj) 2 mg IV Q4H PRN PRN Reason: Pain, Moderate (4-6) Morphine Sulfate (Morphine 4 Mg/1 Ml Inj) 4 mg IV Q4H PRN PRN Reason: Pain , Severe (7-10) Morphine Sulfate (Morphine 4 Mg/1 Ml Inj) 2 mg IV Q5MIN PRN PRN Reason: Chest Pain unrelieved by NTG Ondansetron HCl (Ondansetron 4 Mg/2 Ml Inj) 4 mg IV Q8H PRN PRN Reason: Nausea And Vomiting Sodium Chloride (Sodium Chloride 0.9% 10 Ml Flush Syringe) 10 ml IV BID HIMANSHU Sodium Chloride (Sodium Chloride 0.9% 10 Ml Flush Syringe) 10 ml IV PRN PRN PRN Reason: LINE FLUSH Sodium Chloride (Sodium Chloride 0.9% 10 Ml Flush Syringe) 10 ml IV PRN PRN PRN Reason: LINE FLUSH Tramadol HCl (Tramadol 50 Mg Tab) 50 mg PO Q6H PRN PRN Reason: Pain, Moderate (4-6) Exam - Constitutional Vitals: Temp Pulse Resp BP Pulse Ox 98.4 F 95 H 18 143/83 95 08/25/21 21:23 08/25/21 21:23 08/25/21 21:23 08/25/21 21:23 08/25/21 21:23 General appearance: Present: no acute distress, well-nourished - EENT Eyes: Present: PERRL, EOM intact. Absent: scleral icterus ENT: hearing intact, clear oral mucosa - Neck Neck: Present: supple, normal ROM - Respiratory Respiratory effort: normal Respiratory: bilateral: CTA - Cardiovascular Rhythm: regular Heart Sounds: Present: S1 & S2. Absent: gallop, systolic murmur, diastolic murmur, rub, click - Extremities Extremities: no ischemia, pulses intact, pulses symmetrical, No edema, Full ROM Peripheral Pulses: within normal limits - Abdominal General gastrointestinal: Present: soft, non-tender, non-distended, normal bowel sounds. Absent: mass - Integumentary Integumentary: Present: clear, warm, dry, normal turgor (Shallow). Absent: rash - Musculoskeletal Musculoskeletal: strength equal bilaterally - Psychiatric Psychiatric: appropriate mood/affect, intact judgment & insight, memory intact, cooperative - Neurologic Neurologic: CNII-XII intact, no focal deficits, moves all extremities HEART Score - HEART Score EKG: Non-specific Age: > 65 Risk factors: > 3 risk factors or hx of atherosclerotic disease Troponin: Troponin T < 0.010 ng/mL (0.00-0.029) 08/25/21 22:49 Troponin: < normal limit Results - Labs CBC & Chem 7: 08/26/21 03:00 08/26/21 03:00 Labs: Abnormal lab results 08/25/21 08/25/21 Range/Units 22:49 22:49 RBC 5.67 H (3.65-5.03) M/mm3 MCV 78 L (84-94) fl MCH 25 L (28-32) pg RDW 15.5 H (13.2-15.2) % Lymph % (Auto) 35.6 H (13.4-35.0) % [place] % (Auto) 10.5 H (0.0-7.3) % [place] # (Auto) 0.9 H (0.0-0.8) K/mm3 Carbon Dioxide 20 L (22-30) mmol/L BUN 21 H (9-20) mg/dL Creatinine 1.5 H (0.8-1.3) mg/dL Calcium 10.4 H (8.4-10.2) mg/dL Total Protein 10.0 H (6.3-8.2) g/dL Assessment and Plan - Patient Problems (1) Chest pain Current Visit: Yes Status: Acute Plan to address problem: Patient admitted and placed on telemetry. We will check serial cardiac enzymes. He will be placed on daily aspirin, sublingual nitroglycerin and IV morphine as needed for chest pain. Patient had a normal stress test in June 2021. Ejection fraction at the time was about 62%. We will request cardiology recommendation (2) Cocaine abuse Current Visit: No Status: Acute Plan to address problem: Patient counseled on quitting illicit drug use. (3) HIV (human immunodeficiency virus infection) Current Visit: No Status: Chronic Plan to address problem: CD4 count unknown. Will encourage patient to continue his routine home medications. (4) DVT prophylaxis Current Visit: No Status: Acute Plan to address problem: Patient placed on subcutaneous heparin. (5) Full code status Current Visit: Yes Status: Acute Plan to address problem: Patient is full code.
[2021-08-26 04:00] LABS: Calcium 10.1 mg/dL (8.4-10.2)
[2021-08-26 04:21] LABS: Basophils % (Auto) 0.4 % (0.0-1.8); Eosinophils # (Auto) 0.1 K/mm3 (0.0-0.4); Eosinophils % (Auto) 1.1 % (0.0-4.3); Hematocrit 41.8 % (35.5-45.6); Hemoglobin 13.6 gm/dl (11.8-15.2); Lymphocytes # (Auto) 2.8 K/mm3 (1.2-5.4); Lymphocytes % (Auto) 35.4 % (13.4-35.0); Mean Corpuscular HGB Conc 33 % (32-34); Mean Corpuscular Volume 79 fl (84-94); Monocytes # (Auto) 0.8 K/mm3 (0.0-0.8); Monocytes % (Auto) 10.5 % (0.0-7.3); Platelet Count 224 K/mm3 (140-440); Red Blood Count 5.33 M/mm3 (3.65-5.03); Red Cell Distribution Width 15.3 % (13.2-15.2)
--- NOTE | 2021-08-26 11:09 | Progress Note ---
Assessment and Plan Assessment and plan: 65-year-old male with significant past medical history of HIV with unknown CD4 counts, hepatitis C, history of CVA and hypertension presenting to the emergency room today complaining of chest pain and generalized weakness. Patient states that he got the shingles vaccine and a COVID vaccination the day prior to admission and thereafter started feeling weak. 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 The patient complained of left-sided chest pain which felt like pressure and associated shortness of breath Chest pain Cocaine abuse HIV 08/26/2021. Continue on the chest pain pathway and follow-up serial troponins and EKGs. Await cardiology consultation for further evaluation. History Interval history: No new issues overnight Hospitalist Physical - Constitutional Vitals: Temp Pulse Resp BP Pulse Ox 98.4 F 80 18 123/79 96 08/25/21 21:23 08/26/21 04:05 08/26/21 04:05 08/26/21 04:05 08/26/21 06:09 General appearance: Present: no acute distress, well-nourished - EENT Eyes: Present: PERRL, EOM intact ENT: hearing intact, clear oral mucosa, dentition normal - Neck Neck: Present: supple, normal ROM - Respiratory Respiratory effort: normal Respiratory: bilateral: CTA - Cardiovascular Rhythm: regular Heart Sounds: Present: S1 & S2. Absent: gallop, rub - Extremities Extremities: no ischemia, No edema, Full ROM - Abdominal General gastrointestinal: soft, non-tender, non-distended, normal bowel sounds - Integumentary Integumentary: Present: clear, warm, dry - Neurologic Neurologic: CNII-XII intact, moves all extremities HEART Score - HEART Score EKG: Non-specific Age: > 65 Risk factors: > 3 risk factors or hx of atherosclerotic disease Troponin: Troponin T < 0.010 ng/mL (0.00-0.029) 08/26/21 09:33 Troponin: < normal limit Results - Labs CBC & Chem 7: 08/26/21 03:00 08/26/21 03:00 Labs: Laboratory Last Values WBC 7.9 K/mm3 (4.5-11.0) 08/26/21 03:00 RBC 5.33 M/mm3 (3.65-5.03) H 08/26/21 03:00 Hgb 13.6 gm/dl (11.8-15.2) 08/26/21 03:00 Hct 41.8 % (35.5-45.6) 08/26/21 03:00 MCV 79 fl (84-94) L 08/26/21 03:00 MCH 26 pg (28-32) L 08/26/21 03:00 MCHC 33 % (32-34) 08/26/21 03:00 RDW 15.3 % (13.2-15.2) H 08/26/21 03:00 Plt Count 224 K/mm3 (140-440) 08/26/21 03:00 Lymph % (Auto) 35.4 % (13.4-35.0) H 08/26/21 03:00 [place] % (Auto) 10.5 % (0.0-7.3) H 08/26/21 03:00 Eos % (Auto) 1.1 % (0.0-4.3) 08/26/21 03:00 Baso % (Auto) 0.4 % (0.0-1.8) 08/26/21 03:00 Lymph # (Auto) 2.8 K/mm3 (1.2-5.4) 08/26/21 03:00 [place] # (Auto) 0.8 K/mm3 (0.0-0.8) 08/26/21 03:00 Eos # (Auto) 0.1 K/mm3 (0.0-0.4) 08/26/21 03:00 Baso # (Auto) 0.0 K/mm3 (0.0-0.1) 08/26/21 03:00 Seg Neutrophils % 52.6 % (40.0-70.0) 08/26/21 03:00 Seg Neutrophils # 4.1 K/mm3 (1.8-7.7) 08/26/21 03:00 Sodium 141 mmol/L (137-145) 08/26/21 03:00 Potassium 4.4 mmol/L (3.6-5.0) 08/26/21 03:00 Chloride 106.0 mmol/L (98-107) 08/26/21 03:00 Carbon Dioxide 25 mmol/L (22-30) 08/26/21 03:00 Anion Gap 14 mmol/L 08/26/21 03:00 BUN 23 mg/dL (9-20) H 08/26/21 03:00 Creatinine 1.5 mg/dL (0.8-1.3) H 08/26/21 03:00 Estimated GFR 56 ml/min 08/26/21 03:00 BUN/Creatinine Ratio 15 % 08/26/21 03:00 Glucose 78 mg/dL (75-100) 08/26/21 03:00 Calcium 10.1 mg/dL (8.4-10.2) 08/26/21 03:00 Magnesium 2.20 mg/dL (1.7-2.3) 08/25/21 22:49 Total Bilirubin 1.10 mg/dL (0.1-1.2) 08/25/21 22:49 AST 25 units/L (5-40) 08/25/21 22:49 ALT 31 units/L (7-56) 08/25/21 22:49 Alkaline Phosphatase 102 units/L (35-129) 08/25/21 22:49 Total Creatine Kinase 94 units/L (55-170) 08/25/21 22:49 CK-MB (CK-2) 1.4 ng/mL (0.0-4.0) 08/25/21 22:49 CK-MB (CK-2) Rel Index 1.4 (0-4) 08/25/21 22:49 Troponin T < 0.010 ng/mL (0.00-0.029) 08/26/21 09:33 Total Protein 10.0 g/dL (6.3-8.2) H 08/25/21 22:49 Albumin 4.0 g/dL (3.9-5) 08/25/21 22:49 Albumin/Globulin Ratio 0.7 % 08/25/21 22:49 TSH 1.700 mlU/mL (0.270-4.200) 08/25/21 22:49 Free T4 1.31 ng/dL (0.76-1.46) 08/25/21 22:49 Plasma/Serum Alcohol < 0.01 % (0-0.07) 08/25/21 22:49 [place]/IV: Voiding Method Toilet Active Medications - Current Medications Current Medications: Generic Name Dose Route Start Last Admin Trade Name Freq PRN Reason Stop Dose Admin Acetaminophen 650 mg 08/26/21 02:38 Acetaminophen 325 Mg Tab PO Q4H PRN Pain MILD(1-3)/Fever >100.5/FRIAS Aspirin 325 mg 08/27/21 10:00 Aspirin Ec 325 Mg Tab PO QDAY HIMANSHU Magnesium Hydroxide 30 ml 08/26/21 02:38 Magnesium Hydroxide (Mom) Oral Liqd Udc PO Q4H PRN Constipation Morphine Sulfate 2 mg 08/26/21 02:38 Morphine 2 Mg/1 Ml Inj IV Q4H PRN Pain, Moderate (4-6) Morphine Sulfate 4 mg 08/26/21 02:38 Morphine 4 Mg/1 Ml Inj IV Q4H PRN Pain , Severe (7-10) Morphine Sulfate 2 mg 08/26/21 02:38 Morphine 2 Mg/1 Ml Inj IV Q5MIN PRN Chest Pain unrelieved by NTG Ondansetron HCl 4 mg 08/26/21 02:38 Ondansetron 4 Mg/2 Ml Inj IV Q8H PRN Nausea And Vomiting Sodium Chloride 10 ml 08/26/21 10:00 Sodium Chloride 0.9% 10 Ml Flush Syringe IV BID HIMANSHU Sodium Chloride 10 ml 08/26/21 02:38 Sodium Chloride 0.9% 10 Ml Flush Syringe IV PRN PRN LINE FLUSH Tramadol HCl 50 mg 08/26/21 02:38 Tramadol 50 Mg Tab PO Q6H PRN Pain, Moderate (4-6)
--- NOTE | 2021-08-26 11:15 | Consultation ---
History of Present Illness Consult date: 08/26/21 Consult reason: chest pain History of present illness: 65-year-old -[place] male with a history of hypertension CVA and HIV presenting with chest pain. Patient was admitted for further evaluation and management. Past History Past Medical History: hypertension, hyperlipidemia, liver disease (Hep.C,), renal failure, other (HIV with unknown CD4 count) Past Surgical History: hernia repair Social history: smoking (Current daily smoker), alcohol abuse, other (Uses cocaine occasionally) Family history: no significant family history Medications and Allergies Allergies Allergy/AdvReac Type Severity Reaction Status Date / Time No Known Allergies Allergy Unverified 07/27/13 21:55 Home Medications Medication Instructions Recorded Confirmed Last Taken Type Abacavir/Dolutegravir/Lamivudi 1 each PO QDAY 02/27/19 07/09/21 07/05/21 History [Triumeq 600-50-300 mg Tablet] AtorvaSTATin [Lipitor] 40 mg PO QHS #30 tablet 02/27/19 07/09/21 07/05/21 Rx Famotidine [Pepcid] 20 mg PO QAM #20 tablet 02/27/19 07/09/21 07/05/21 Rx Tamsulosin [Flomax] 0.4 mg PO QDAY 02/27/19 07/09/21 07/05/21 History Escitalopram [Lexapro] 5 mg PO QDAY #30 tablet 07/10/21 Unknown Rx Mirtazapine [Remeron 15mg TAB] 7.5 mg PO QHS #30 tablet 07/10/21 Unknown Rx methOCARBAMOL [Robaxin TAB] 500 mg PO Q6H PRN tablet 07/10/21 Unknown Rx Active Meds: Active Medications Acetaminophen (Acetaminophen 325 Mg Tab) 650 mg PO Q4H PRN PRN Reason: Pain MILD(1-3)/Fever >100.5/FRIAS Aspirin (Aspirin Ec 325 Mg Tab) 325 mg PO QDAY HIMANSHU Magnesium Hydroxide (Magnesium Hydroxide (Mom) Oral Liqd Udc) 30 ml PO Q4H PRN PRN Reason: Constipation Morphine Sulfate (Morphine 2 Mg/1 Ml Inj) 2 mg IV Q4H PRN PRN Reason: Pain, Moderate (4-6) Morphine Sulfate (Morphine 4 Mg/1 Ml Inj) 4 mg IV Q4H PRN PRN Reason: Pain , Severe (7-10) Morphine Sulfate (Morphine 2 Mg/1 Ml Inj) 2 mg IV Q5MIN PRN PRN Reason: Chest Pain unrelieved by NTG Ondansetron HCl (Ondansetron 4 Mg/2 Ml Inj) 4 mg IV Q8H PRN PRN Reason: Nausea And Vomiting Sodium Chloride (Sodium Chloride 0.9% 10 Ml Flush Syringe) 10 ml IV BID HIMANSHU Sodium Chloride (Sodium Chloride 0.9% 10 Ml Flush Syringe) 10 ml IV PRN PRN PRN Reason: LINE FLUSH Tramadol HCl (Tramadol 50 Mg Tab) 50 mg PO Q6H PRN PRN Reason: Pain, Moderate (4-6) Review of Systems Constitutional: no weight loss, no weight gain, no fever Ears, nose, mouth and throat: no ear pain, no tinnitis Cardiovascular: chest pain, no orthopnea, no palpitations, no syncope, no shortness of breath Respiratory: no cough, no shortness of breath, no dyspnea on exertion Gastrointestinal: no nausea, no vomiting, no diarrhea Genitourinary Male: no dysuria, no urinary frequency, no urinary hesitancy, no nocturia Musculoskeletal: no neck stiffness, no neck pain Integumentary: no rash, no redness Neurological: no head injury, no paralysis, no weakness, no numbness Endocrine: no cold intolerance, no heat intolerance, no excessive thirst, no nocturia Hematologic/Lymphatic: no easy bruising, no easy bleeding Allergic/Immunologic: no urticaria, no allergic rhinitis Physical Examination Vital Signs Temp Pulse Resp BP Pulse Ox 98.4 F 95 H 18 143/83 95 08/25/21 21:23 08/25/21 21:23 08/25/21 21:23 08/25/21 21:23 08/25/21 21:23 General appearance: no acute distress HEENT: Positive: PERRL, Normocephaly, Mucus Membranes Moist Neck: Positive: neck supple, trachea midline. Negative: JVD/HJR Cardiac: Positive: Regular Rate, S1/S2, PMI, Dilated, Laterally Displaced. Negative: S3, S4 Lungs: Positive: clear to auscultation, No Wheeze, Rales, Rhonchi Neuro: Positive: Grossly Intact. Negative: No Lateralizing Findings Abdomen: Positive: Unremarkable Male genitourinary: Positive: normal Extremities: Absent: edema Results 08/26/21 03:00 08/26/21 03:00 Cardiac Enzymes 08/25/21 Range/Units 22:49 AST 25 (5-40) units/L CK-MB (CK-2) 1.4 (0.0-4.0) ng/mL CBC 08/25/21 08/26/21 Range/Units 22:49 03:00 WBC 8.4 7.9 (4.5-11.0) K/mm3 RBC 5.67 H 5.33 H (3.65-5.03) M/mm3 Hgb 14.4 13.6 (11.8-15.2) gm/dl Hct 44.1 41.8 (35.5-45.6) % Plt Count 236 224 (140-440) K/mm3 Lymph # (Auto) 3.0 2.8 (1.2-5.4) K/mm3 [place] # (Auto) 0.9 H 0.8 (0.0-0.8) K/mm3 Eos # (Auto) 0.1 0.1 (0.0-0.4) K/mm3 Baso # (Auto) 0.0 0.0 (0.0-0.1) K/mm3 Comprehensive Metabolic Panel 08/25/21 08/26/21 Range/Units 22:49 03:00 Sodium 141 141 (137-145) mmol/L Potassium 3.9 4.4 (3.6-5.0) mmol/L Chloride 104.1 106.0 (98-107) mmol/L Carbon Dioxide 20 L 25 (22-30) mmol/L BUN 21 H 23 H (9-20) mg/dL Creatinine 1.5 H 1.5 H (0.8-1.3) mg/dL Glucose 82 78 (75-100) mg/dL Calcium 10.4 H 10.1 (8.4-10.2) mg/dL AST 25 (5-40) units/L ALT 31 (7-56) units/L Alkaline Phosphatase 102 (35-129) units/L Total Protein 10.0 H (6.3-8.2) g/dL Albumin 4.0 (3.9-5) g/dL EKG interpretations - Telemetry EKG Rhythm: Sinus Rhythm Assessment and Plan 1. Chest pain rule out ischemic coronary artery disease 2. Essential hypertension 3. HIV 4. History of hepatitis C 5. Chronic renal insufficiency unspecified Serial serum troponin levels are negative patient's rhythm remained sinus Plan. Stress MPI to rule out underlying ischemic coronary artery disease echocardiogram to assess global and regional left ventricular systolic function.
[2021-08-26 20:20] LABS: Bilirubin,Urine NEG (Negative); Blood,Urine NEG (Negative); Color,Urine Yellow (Yellow); Mucus,Urine FEW /HPF; Protein,Urine <15 mg/dL mg/dL (Negative); RBC,Urine < 1.0 /HPF (0.0-6.0)
[2021-08-26 20:31] LABS: Amphetamine Screen,Urine Negative; Benzodiazepines Screen,Urine Negative; Cannabinoid Screen,Urine Negative; Methadone Screen,Urine Negative; Opiate Screen,Urine Negative
[2021-08-26 21:00] LABS: Cocaine Screen,Urine Positive
[2021-08-27 05:39] LABS: Hematocrit 37.6 % (35.5-45.6); Hemoglobin 12.4 gm/dl (11.8-15.2); Mean Corpuscular HGB Conc 33 % (32-34); Mean Corpuscular Volume 78 fl (84-94); Platelet Count 204 K/mm3 (140-440); Red Blood Count 4.85 M/mm3 (3.65-5.03); Red Cell Distribution Width 15.2 % (13.2-15.2)
[2021-08-27 05:56] LABS: Calcium 9.5 mg/dL (8.4-10.2)
[2021-08-27 06:52] LABS: Total Cells Counted 100
[2021-08-27 06:53] LABS: Anisocytosis 1+; Hypochromasia 1+
[2021-08-27] MEDS: ASPIRIN EC 325 MG TAB PO SCH (09:36)
--- NOTE | 2021-08-27 11:09 | Progress Note ---
Assessment and Plan 1. Atypical noncardiac chest pain 2. Essential hypertension 3. HIV 4. History of hepatitis C 5. Chronic renal insufficiency unspecified 6. BPH Serial serum troponin levels are negative patient's rhythm remained sinus recent stress MPI done 07/09/2021 was negative for ischemia. Plan. Atypical noncardiac chest pain has resolved no further cardiac work-up indicated Subjective Date of service: 08/27/21 Interval history: No cardiac symptoms Objective Vital Signs Temp Pulse Resp BP Pulse Ox 08/27/21 05:30 98.6 F 73 18 99/56 94 08/26/21 23:07 97.8 F 68 20 95/59 95 08/26/21 22:41 95 08/26/21 18:00 95 - Physical Examination General: Appears Well, No Apparent Distress HEENT: Positive: PERRL, Normocephaly, Mucus Membranes Moist Neck: Positive: neck supple, trachea midline. Negative: JVD/HJR Cardiac: Positive: Regular Rate, S1/S2, PMI, Laterally Displaced. Negative: S3, S4 Lungs: Positive: clear to auscultation, No Wheeze, Rales, Rhonchi Neuro: Positive: Grossly Intact. Negative: No Lateralizing Findings Abdomen: Positive: Unremarkable Extremities: Absent: edema - Labs and Meds CBC 08/27/21 Range/Units 04:43 WBC 5.9 (4.5-11.0) K/mm3 RBC 4.85 (3.65-5.03) M/mm3 Hgb 12.4 (11.8-15.2) gm/dl Hct 37.6 (35.5-45.6) % Plt Count 204 (140-440) K/mm3 Comprehensive Metabolic Panel 08/27/21 Range/Units 04:43 Sodium 138 (137-145) mmol/L Potassium 3.8 (3.6-5.0) mmol/L Chloride 105.4 (98-107) mmol/L Carbon Dioxide 23 (22-30) mmol/L BUN 26 H (9-20) mg/dL Creatinine 1.5 H (0.8-1.3) mg/dL Glucose 91 (75-100) mg/dL Calcium 9.5 (8.4-10.2) mg/dL
--- NOTE | 2021-08-27 11:32 | Discharge Summary ---
Providers - Providers Date of Admission: 08/26/21 02:39 Date of discharge: 08/27/21 Attending physician: LEELEE KNAPP 08/26/21 Consult to Cardiac Rehabilitation [CONS] Routine Reason For Exam: Phase I 08/26/21 02:40 Consult to Cardiology [CONS] Routine Consulting Provider: KALPESH DODSON Reason For Exam: chest pain Primary care physician: BERNADETTE ERVIN Hospitalization Reason for admission: CP Condition: Stable Hospital course: 65-year-old male with significant past medical history of HIV with unknown CD4 counts, hepatitis C, history of CVA and hypertension presenting to the emergency room today complaining of chest pain and generalized weakness. Patient states that he got the shingles vaccine and a COVID vaccination the day prior to admission and thereafter started feeling weak. 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 The patient complained of left-sided chest pain which felt like pressure and associated shortness of breath. The patient was admitted with diagnosis of chest pain, cocaine abuse, hepatitis C, chronic renal insufficiency, hypertension and HIV. Cardiology was consulted. Patient had serial serum troponin levels that were negative. Patient's rhythm remained sinus rhythm. Recent stress MPI done 07/09/2021 was negative for ischemia. Cardiology felt that the patient had atypical noncardiac chest pain which now is resolved and no further cardiac work-up indicated. Etiology of chest pain likely secondary to GERD. Dedicated discharge time 32 minutes. Disposition: 01 HOME / SELF CARE / HOMELESS Final Discharge Diagnosis (Prints w/discharge instructions): chest pain, cocaine abuse, hepatitis C, chronic renal insufficiency, hypertension and HIV Core Measure Documentation - Palliative Care Palliative Care/ Comfort Measures: Not Applicable - Core Measures Any of the following diagnoses?: none Exam - Constitutional Vitals: Temp Pulse Resp BP Pulse Ox 98.6 F 73 18 99/56 94 08/27/21 05:30 08/27/21 05:30 08/27/21 05:30 08/27/21 05:30 08/27/21 05:30 General appearance: Present: no acute distress, well-nourished - EENT Eyes: Present: PERRL ENT: hearing intact, clear oral mucosa - Neck Neck: Present: supple, normal ROM - Respiratory Respiratory effort: normal Respiratory: bilateral: CTA - Cardiovascular Heart Sounds: Present: S1 & S2. Absent: rub, click - Extremities Extremities: pulses symmetrical, No edema Peripheral Pulses: within normal limits - Abdominal General gastrointestinal: Present: soft, non-tender, non-distended, normal bowel sounds Male genitourinary: Present: normal - Integumentary Integumentary: Present: clear, warm, dry - Musculoskeletal Musculoskeletal: gait normal, strength equal bilaterally - Psychiatric Psychiatric: appropriate mood/affect, intact judgment & insight - Neurologic Neurologic: CNII-XII intact, moves all extremities Plan Activity: advance as tolerated Weight Bearing Status: Weight Bear as Tolerated Diet: regular Follow up with: BERNADETTE ERVIN MD [Primary Care Provider] - 7 Days JOE BLANTON MD [Staff Physician] - 7 Days Prescriptions: Aspirin EC [Ecotrin] 325 mg PO QDAY #30 tablet Tamsulosin [Flomax] 0.4 mg PO QDAY #30 cap Escitalopram [Lexapro] 5 mg PO QDAY #30 tablet AtorvaSTATin [Lipitor] 40 mg PO QHS #30 tablet Famotidine [Pepcid] 20 mg PO QAM #20 tablet Mirtazapine [Remeron 15mg TAB] 7.5 mg PO QHS #30 tablet methOCARBAMOL [Robaxin TAB] 500 mg PO Q6H PRN #30 tablet PRN Reason: Muscle Spasm
--- NOTE | 2021-08-27 12:31 | Progress Note ---
Assessment and Plan Assessment and plan: 65-year-old male with significant past medical history of HIV with unknown CD4 counts, hepatitis C, history of CVA and hypertension presenting to the emergency room today complaining of chest pain and generalized weakness. Patient states that he got the shingles vaccine and a COVID vaccination the day prior to admission and thereafter started feeling weak. Patient also admits to using cocaine the day [employer]. The patient complained of left-sided chest pain which felt like pressure and associated shortness of breath Chest pain Cocaine abuse HIV Hepatitis C Chronic kidney disease BPH 08/26/2021. Continue on the chest pain pathway and follow-up serial troponins and EKGs. Await cardiology consultation for further evaluation. 08/27/2021. Cardiology reports serial serum troponin levels are negative and patient's rhythm remained sinus. Recent MPI done June 2021 was found to be negative. Cardiology feels the chest pain is atypical noncardiac and no further cardiac work-up indicated. Patient was being prepared for discharge but complained of inability to urinate and left flank pain. Therefore, we will obtain renal ultrasound to rule out renal stone or other obstructive uropathy. Etiology may be related to BPH. Patient creatinine appears to be at baseline. History Interval history: No new issues overnight Hospitalist Physical - Constitutional Vitals: Temp Pulse Resp BP Pulse Ox 98.6 F 73 18 99/56 94 08/27/21 05:30 08/27/21 05:30 08/27/21 05:30 08/27/21 05:30 08/27/21 05:30 General appearance: Present: no acute distress - EENT Eyes: Present: PERRL, EOM intact ENT: hearing intact, clear oral mucosa, dentition normal - Neck Neck: Present: supple, normal ROM - Respiratory Respiratory effort: normal Respiratory: bilateral: CTA - Cardiovascular Rhythm: regular Heart Sounds: Present: S1 & S2. Absent: gallop, rub - Extremities Extremities: no ischemia, No edema, Full ROM - Abdominal General gastrointestinal: soft, non-tender, non-distended, normal bowel sounds - Integumentary Integumentary: Present: clear, warm, dry - Neurologic Neurologic: CNII-XII intact, moves all extremities HEART Score - HEART Score EKG: Non-specific Age: > 65 Risk factors: > 3 risk factors or hx of atherosclerotic disease Troponin: Troponin T < 0.010 ng/mL (0.00-0.029) 08/26/21 09:33 Troponin: < normal limit Results - Labs CBC & Chem 7: 08/27/21 04:43 08/27/21 04:43 Labs: Laboratory Last Values WBC 5.9 K/mm3 (4.5-11.0) 08/27/21 04:43 RBC 4.85 M/mm3 (3.65-5.03) 08/27/21 04:43 Hgb 12.4 gm/dl (11.8-15.2) 08/27/21 04:43 Hct 37.6 % (35.5-45.6) 08/27/21 04:43 MCV 78 fl (84-94) L 08/27/21 04:43 MCH 26 pg (28-32) L 08/27/21 04:43 MCHC 33 % (32-34) 08/27/21 04:43 RDW 15.2 % (13.2-15.2) 08/27/21 04:43 Plt Count 204 K/mm3 (140-440) 08/27/21 04:43 Lymph % (Auto) 35.4 % (13.4-35.0) H 08/26/21 03:00 [place] % (Auto) 10.5 % (0.0-7.3) H 08/26/21 03:00 Eos % (Auto) 1.1 % (0.0-4.3) 08/26/21 03:00 Baso % (Auto) 0.4 % (0.0-1.8) 08/26/21 03:00 Lymph # (Auto) 2.8 K/mm3 (1.2-5.4) 08/26/21 03:00 [place] # (Auto) 0.8 K/mm3 (0.0-0.8) 08/26/21 03:00 Eos # (Auto) 0.1 K/mm3 (0.0-0.4) 08/26/21 03:00 Baso # (Auto) 0.0 K/mm3 (0.0-0.1) 08/26/21 03:00 Add Manual Diff Complete 08/27/21 04:43 Total Counted 100 08/27/21 04:43 Seg Neutrophils % 52.6 % (40.0-70.0) 08/26/21 03:00 Seg Neuts % (Manual) 31.0 % (40.0-70.0) L 08/27/21 04:43 Band Neutrophils % 0 % 08/27/21 04:43 Lymphocytes % (Manual) 53.0 % (13.4-35.0) H 08/27/21 04:43 Reactive Lymphs % (Man) 8.0 % 08/27/21 04:43 Monocytes % (Manual) 5.0 % (0.0-7.3) 08/27/21 04:43 Eosinophils % (Manual) 2.0 % (0.0-4.3) 08/27/21 04:43 Basophils % (Manual) 1.0 % (0.0-1.8) 08/27/21 04:43 Metamyelocytes % 0 % 08/27/21 04:43 Myelocytes % 0 % 08/27/21 04:43 Promyelocytes % 0 % 08/27/21 04:43 Blast Cells % 0 % 08/27/21 04:43 Nucleated RBC % Not Reportable 08/27/21 04:43 Seg Neutrophils # 4.1 K/mm3 (1.8-7.7) 08/26/21 03:00 Seg Neutrophils # Man 1.8 K/mm3 (1.8-7.7) 08/27/21 04:43 Band Neutrophils # 0.0 K/mm3 08/27/21 04:43 Lymphocytes # (Manual) 3.1 K/mm3 (1.2-5.4) 08/27/21 04:43 Abs React Lymphs (Man) 0.5 K/mm3 08/27/21 04:43 Monocytes # (Manual) 0.3 K/mm3 (0.0-0.8) 08/27/21 04:43 Eosinophils # (Manual) 0.1 K/mm3 (0.0-0.4) 08/27/21 04:43 Basophils # (Manual) 0.1 K/mm3 (0.0-0.1) 08/27/21 04:43 Metamyelocytes # 0.0 K/mm3 08/27/21 04:43 Myelocytes # 0.0 K/mm3 08/27/21 04:43 Promyelocytes # 0.0 K/mm3 08/27/21 04:43 Blast Cells # 0.0 K/mm3 08/27/21 04:43 WBC Morphology Not Reportable 08/27/21 04:43 Hypersegmented Neuts Not Reportable 08/27/21 04:43 Hyposegmented Neuts Not Reportable 08/27/21 04:43 Hypogranular Neuts Not Reportable 08/27/21 04:43 Smudge Cells Not Reportable 08/27/21 04:43 Toxic Granulation Not Reportable 08/27/21 04:43 Toxic Vacuolation Not Reportable 08/27/21 04:43 Dohle Bodies Not Reportable 08/27/21 04:43 Pelger-Huet Anomaly Not Reportable 08/27/21 04:43 Rachel Rods Not Reportable 08/27/21 04:43 Platelet Estimate Appears normal 08/27/21 04:43 Clumped Platelets Not Reportable 08/27/21 04:43 Plt Clumps, EDTA Not Reportable 08/27/21 04:43 Large Platelets Not Reportable 08/27/21 04:43 Giant Platelets Not Reportable 08/27/21 04:43 Platelet Satelliting Not Reportable 08/27/21 04:43 Plt Morphology Comment Not Reportable 08/27/21 04:43 RBC Morphology Not Reportable 08/27/21 04:43 Dimorphic RBCs Not Reportable 08/27/21 04:43 Polychromasia Not Reportable 08/27/21 04:43 Hypochromasia 1+ 08/27/21 04:43 Poikilocytosis Not Reportable 08/27/21 04:43 Anisocytosis 1+ 08/27/21 04:43 Microcytosis Not Reportable 08/27/21 04:43 Macrocytosis Not Reportable 08/27/21 04:43 Spherocytes Not Reportable 08/27/21 04:43 Pappenheimer Bodies Not Reportable 08/27/21 04:43 Sickle Cells Not Reportable 08/27/21 04:43 Target Cells Not Reportable 08/27/21 04:43 Tear Drop Cells Not Reportable 08/27/21 04:43 Ovalocytes Not Reportable 08/27/21 04:43 Helmet Cells Not Reportable 08/27/21 04:43 [place] Bodies Not Reportable 08/27/21 04:43 [place] Rings Not Reportable 08/27/21 04:43 [place] Cells Not Reportable 08/27/21 04:43 Bite Cells Not Reportable 08/27/21 04:43 Crenated Cell Not Reportable 08/27/21 04:43 Elliptocytes Not Reportable 08/27/21 04:43 Acanthocytes (Spur) Not Reportable 08/27/21 04:43 Rouleaux Not Reportable 08/27/21 04:43 Hemoglobin C Crystals Not Reportable 08/27/21 04:43 Schistocytes Not Reportable 08/27/21 04:43 Malaria parasites Not Reportable 08/27/21 04:43 Serge Bodies Not Reportable 08/27/21 04:43 Hem Pathologist Commnt No 08/27/21 04:43 Sodium 138 mmol/L (137-145) 08/27/21 04:43 Potassium 3.8 mmol/L (3.6-5.0) 08/27/21 04:43 Chloride 105.4 mmol/L (98-107) 08/27/21 04:43 Carbon Dioxide 23 mmol/L (22-30) 08/27/21 04:43 Anion Gap 13 mmol/L 08/27/21 04:43 BUN 26 mg/dL (9-20) H 08/27/21 04:43 Creatinine 1.5 mg/dL (0.8-1.3) H 08/27/21 04:43 Estimated GFR 56 ml/min 08/27/21 04:43 BUN/Creatinine Ratio 17 % 08/27/21 04:43 Glucose 91 mg/dL (75-100) 08/27/21 04:43 Calcium 9.5 mg/dL (8.4-10.2) 08/27/21 04:43 Magnesium 2.20 mg/dL (1.7-2.3) 08/25/21 22:49 Total Bilirubin 1.10 mg/dL (0.1-1.2) 08/25/21 22:49 AST 25 units/L (5-40) 08/25/21 22:49 ALT 31 units/L (7-56) 08/25/21 22:49 Alkaline Phosphatase 102 units/L (35-129) 08/25/21 22:49 Total Creatine Kinase 94 units/L (55-170) 08/25/21 22:49 CK-MB (CK-2) 1.4 ng/mL (0.0-4.0) 08/25/21 22:49 CK-MB (CK-2) Rel Index 1.4 (0-4) 08/25/21 22:49 Troponin T < 0.010 ng/mL (0.00-0.029) 08/26/21 09:33 Total Protein 10.0 g/dL (6.3-8.2) H 08/25/21 22:49 Albumin 4.0 g/dL (3.9-5) 08/25/21 22:49 Albumin/Globulin Ratio 0.7 % 08/25/21 22:49 TSH 1.700 mlU/mL (0.270-4.200) 08/25/21 22:49 Free T4 1.31 ng/dL (0.76-1.46) 08/25/21 22:49 Urine Color Yellow (Yellow) 08/25/21 Unknown Urine Turbidity Clear (Clear) 08/25/21 Unknown Urine pH 5.0 (5.0-7.0) 08/25/21 Unknown Ur Specific [place] 1.014 (1.003-1.030) 08/25/21 Unknown Urine Protein <15 mg/dl mg/dL (Negative) 08/25/21 Unknown Urine Glucose (UA) Neg mg/dL (Negative) 08/25/21 Unknown Urine Ketones Neg mg/dL (Negative) 08/25/21 Unknown Urine Blood Neg (Negative) 08/25/21 Unknown Urine Nitrite Neg (Negative) 08/25/21 Unknown Urine Bilirubin Neg (Negative) 08/25/21 Unknown Urine Urobilinogen 2.0 mg/dL (<2.0) 08/25/21 Unknown Ur Leukocyte Esterase Tr (Negative) 08/25/21 Unknown Urine WBC (Auto) 2.0 /HPF (0.0-6.0) 08/25/21 Unknown Urine RBC (Auto) < 1.0 /HPF (0.0-6.0) 08/25/21 Unknown U Epithel Cells (Auto) < 1.0 /HPF (0-13.0) 08/25/21 Unknown Urine Mucus Few /HPF 08/25/21 Unknown Urine Opiates Screen Negative 08/25/21 Unknown Urine Methadone Screen Negative 08/25/21 Unknown Ur Barbiturates Screen Negative 08/25/21 Unknown Ur Phencyclidine Scrn Negative 08/25/21 Unknown Ur Amphetamines Screen Negative 08/25/21 Unknown U Benzodiazepines Scrn Negative 08/25/21 Unknown Urine Cocaine Screen Positive 08/25/21 Unknown U Marijuana (THC) Screen Negative 08/25/21 Unknown Drugs of Abuse Note Disclamer 08/25/21 Unknown Plasma/Serum Alcohol < 0.01 % (0-0.07) 08/25/21 22:49 [place]/IV: Voiding Method Urinal Active Medications - Current Medications Current Medications: Generic Name Dose Route Start Last Admin Trade Name Freq PRN Reason Stop Dose Admin Acetaminophen 650 mg 08/26/21 02:38 Acetaminophen 325 Mg Tab PO Q4H PRN Pain MILD(1-3)/Fever >100.5/FRIAS Aspirin 325 mg 08/27/21 10:00 08/27/21 09:36 Aspirin Ec 325 Mg Tab PO 325 mg QDAY HIMANSHU Administration Magnesium Hydroxide 30 ml 08/26/21 02:38 Magnesium Hydroxide (Mom) Oral Liqd Udc PO Q4H PRN Constipation Morphine Sulfate 2 mg 08/26/21 02:38 Morphine 2 Mg/1 Ml Inj IV Q4H PRN Pain, Moderate (4-6) Morphine Sulfate 4 mg 08/26/21 02:38 Morphine 4 Mg/1 Ml Inj IV Q4H PRN Pain , Severe (7-10) Morphine Sulfate 2 mg 08/26/21 02:38 Morphine 2 Mg/1 Ml Inj IV Q5MIN PRN Chest Pain unrelieved by NTG Ondansetron HCl 4 mg 08/26/21 02:38 Ondansetron 4 Mg/2 Ml Inj IV Q8H PRN Nausea And Vomiting Sodium Chloride 10 ml 08/26/21 10:00 08/27/21 09:36 Sodium Chloride 0.9% 10 Ml Flush Syringe IV 10 ml BID HIMANSHU Administration Sodium Chloride 10 ml 08/26/21 02:38 Sodium Chloride 0.9% 10 Ml Flush Syringe IV PRN PRN LINE FLUSH Tramadol HCl 50 mg 08/26/21 02:38 Tramadol 50 Mg Tab PO Q6H PRN Pain, Moderate (4-6)
--- NOTE | 2021-08-27 20:17 | Electrocardiograph Report ---
[facility] Test Date: 2021-08-27 Test Time: 07:59:09 Pat Name: VALERIE GONGORA Department: Room: A376 Gender: M [employer] Locator: REINIER : 1955 Requested By: TURNER TELLO Order Number: [id number] Reading MD: Maxwell Elizalde Measurements Intervals [place] Rate: 67 P: 54 GA: 155 QRS: 7 QRSD: 84 T: 92 QT: 394 QTc: 415 Interpretive Statements Sinus rhythm Nonspecific T abnormalities, lateral leads Compared to ECG 08/26/2021 00:30:29 Myocardial infarct finding no longer present T-wave abnormality still present Electronically Signed On 08-27-2021 20:16:46 EDT by Maxwell Elizalde
[2021-08-28 05:39] LABS: Hematocrit 38.2 % (35.5-45.6); Hemoglobin 12.4 gm/dl (11.8-15.2); Mean Corpuscular HGB Conc 32 % (32-34); Mean Corpuscular Volume 78 fl (84-94); Platelet Count 223 K/mm3 (140-440); Red Blood Count 4.89 M/mm3 (3.65-5.03); Red Cell Distribution Width 15.1 % (13.2-15.2)
[2021-08-28 05:58] LABS: BUN/Creatinine Ratio 16; Blood Urea Nitrogen 22 mg/dL (9-20); Calcium 9.3 mg/dL (8.4-10.2); Hemolysis Index 5
[2021-08-28 06:52] LABS: Basophils % (Manual) 0 % (0.0-1.8); Hypochromasia 1+; Total Cells Counted 100
[2021-08-28 06:53] LABS: Anisocytosis 1+; Platelet Estimate Consistent w Auto
[2021-08-28] MEDS: ASPIRIN EC 325 MG TAB PO SCH (09:15)
--- NOTE | 2021-08-28 09:31 | Progress Note ---
Assessment and Plan 1. Atypical noncardiac chest pain 2. Essential hypertension 3. HIV 4. History of hepatitis C 5. Chronic renal insufficiency unspecified 6. BPH Plan. Serial serum troponin levels are negative patient's rhythm remained sinus recent stress MPI done 07/09/2021 was negative for ischemia. Atypical noncardiac chest pain has resolved no further cardiac work-up indicated Will sign off Subjective Date of service: 08/28/21 Interval history: No cardiac symptoms Objective Vital Signs Temp Pulse Resp BP Pulse Ox 08/28/21 06:00 16 100 08/28/21 04:55 98.1 F 70 19 113/63 94 08/27/21 21:05 98.8 F 77 16 113/71 95 08/27/21 18:00 95 08/27/21 15:47 97.0 F L 67 18 93/63 96 08/27/21 10:44 98.2 F 65 18 99/64 96 - Physical Examination General: Appears Well, No Apparent Distress HEENT: Positive: PERRL, Normocephaly, Mucus Membranes Moist Neck: Positive: neck supple, trachea midline. Negative: JVD/HJR Cardiac: Positive: Regular Rate, S1/S2, PMI, Laterally Displaced. Negative: S3, S4 Lungs: Positive: clear to auscultation, No Wheeze, Rales, Rhonchi Neuro: Positive: Grossly Intact. Negative: No Lateralizing Findings Abdomen: Positive: Unremarkable Extremities: Absent: edema - Labs and Meds CBC 08/28/21 Range/Units 04:48 WBC 5.2 (4.5-11.0) K/mm3 RBC 4.89 (3.65-5.03) M/mm3 Hgb 12.4 (11.8-15.2) gm/dl Hct 38.2 (35.5-45.6) % Plt Count 223 (140-440) K/mm3 Comprehensive Metabolic Panel 08/28/21 Range/Units 04:48 Sodium 140 (137-145) mmol/L Potassium 3.7 (3.6-5.0) mmol/L Chloride 106.8 (98-107) mmol/L Carbon Dioxide 23 (22-30) mmol/L BUN 22 H (9-20) mg/dL Creatinine 1.4 H (0.8-1.3) mg/dL Glucose 97 (75-100) mg/dL Calcium 9.3 (8.4-10.2) mg/dL
--- NOTE | 2021-08-28 10:24 | Discharge Summary ---
Providers - Providers Date of Admission: 08/26/21 02:39 Date of discharge: 08/28/21 Attending physician: LASHELL STEVENS MD 08/26/21 Consult to Cardiac Rehabilitation [CONS] Routine Reason For Exam: Phase I Primary care physician: BERNADETTE ERVIN Hospitalization Reason for admission: chest pain Condition: Stable Hospital course: History of present illness: 65-year-old male with significant past medical history of HIV with unknown CD4 counts, hepatitis C, history of CVA and hypertension presenting to the emergency room today complaining of chest pain and generalized weakness. Patient states that he got the shingles vaccine and a COVID vaccination yesterday and thereafter started feeling weak. Patient also admits to using cocaine yesterday. Complains of left-sided chest pain which felt like pressure and associated shortness of breath today. He denies any nausea vomiting, denies any abdominal pain. Denies any headache or dizziness and denies any diaphoresis. Work-up in the emergency room today including EKG, troponin has been unremarkable. Chest x-ray however shows mild interstitial pulmonary edema. Patient is being admitted for chest pain evaluation. Hospital Course: Acute Coronary Syndrome Cocaine abuse HIV Hepatitis C Chronic kidney disease BPH 08/26/2021. Continue on the chest pain pathway and follow-up serial troponins and EKGs. Await cardiology consultation for further evaluation. 08/27/2021. Cardiology reports serial serum troponin levels are negative and patient's rhythm remained sinus. Recent MPI done June 2021 was found to be negative. Cardiology feels the chest pain is atypical noncardiac and no further cardiac work-up indicated. Patient was being prepared for discharge but complained of inability to urinate and left flank pain. Therefore, we will obtain renal ultrasound to rule out renal stone or other obstructive uropathy. Etiology may be related to BPH. Patient creatinine appears to be at baseline. 08/28/2021: patient able to urinate, albiet with some difficulty. Patient states that this has been an ongoing issue for him. He has not taken any medications for this in the past but has been told by his primary care doctor that he needed to follow-up with urology. Patient is stable from a cardiac standpoint we will be discharging home with prescriptions for aspirin, Flomax. He was given contact information for outpatient urology. He was advised to follow-up outpatient with his primary care doctor in 3 to 5 days. He was advised to follow up with cardiology , Dr. Romo outpatient. Disposition: 01 HOME / SELF CARE / HOMELESS Final Discharge Diagnosis (Prints w/discharge instructions): acute coronary syndrome. Time spent for discharge: 35 Core Measure Documentation - Palliative Care Palliative Care/ Comfort Measures: Not Applicable - Core Measures Any of the following diagnoses?: none Exam - Physical Exam Narrative exam: Physical Exam: VITAL SIGNS: Reviewed. GENERAL: The patient appears normally developed, Vital signs as documented. HEAD: No signs of head trauma. EYES: Pupils are equal. Extraocular motions intact. EARS: Hearing grossly intact. MOUTH: Oropharynx is normal. NECK: No adenopathy, no JVD. CHEST: Chest with clear breath sounds bilaterally. No wheezes, rales, or rhonchi. CARDIAC: Regular rate and rhythm. S1 and S2, without murmurs, gallops, or rubs. VASCULAR: No Edema. Peripheral pulses normal and equal in all extremities. ABDOMEN: Soft, non tender and non distended. No rebound or guarding, and no masses palpated. Bowel Sounds normal. MUSCULOSKELETAL: Good range of motion of all major joints. Extremities without clubbing, cyanosis or edema. NEUROLOGIC EXAM: Alert and oriented x 4. no focal sensory or strength deficits. PSYCHIATRIC: Mood normal. SKIN: detail exam as documented in skin assessment - Constitutional Vitals: Temp Pulse Resp BP Pulse Ox 98.1 F 70 16 113/63 100 08/28/21 04:55 08/28/21 04:55 08/28/21 06:00 08/28/21 04:55 08/28/21 06:00 Plan Follow up with: BERNADETTE ERVIN MD [Primary Care Provider] - 7 Days JOE ROMO MD [Staff Physician] - 7 Days FLEX GRANT MD [Staff Physician] - 7 Days Prescriptions: AtorvaSTATin [Lipitor] 40 mg PO QHS #30 tablet Mirtazapine [Remeron 15mg TAB] 7.5 mg PO QHS #30 tablet Aspirin EC [Ecotrin] 325 mg PO QDAY #30 tablet Tamsulosin [Flomax] 0.4 mg PO QDAY #30 cap Escitalopram [Lexapro] 5 mg PO QDAY #30 tablet Famotidine [Pepcid] 20 mg PO QAM #20 tablet methOCARBAMOL [Robaxin TAB] 500 mg PO Q6H PRN #30 tablet PRN Reason: Muscle Spasm
[2021-08-28 12:57] VITALS: BP 108/65
--- NOTE | 2021-08-28 13:44 | Ultrasound Report ---
ULTRASOUND RENAL INDICATION / CLINICAL INFORMATION: renal insufficiency. COMPARISON: Renal ultrasound 02/27/2019. FINDINGS: RIGHT KIDNEY: Length = 10.1 cm. - Echogenicity: Mildly echogenic. - Parenchymal Thickness: Normal. - Hydronephrosis: None. - Cyst / Mass: None. - Stones: None seen. LEFT KIDNEY: Length = 10.4 cm. - Echogenicity: Mildly echogenic. - Parenchymal Thickness: Normal. - Hydronephrosis: None. - Cyst / Mass: None. Previously visualized 1.3 cm cyst is not identified. - Stones: None seen. URINARY BLADDER: No significant abnormality. FREE FLUID: None. ADDITIONAL FINDINGS: Enlarged prostate, similar to previous exam. IMPRESSION: 1. Findings suggestive of bilateral medical renal disease. No acute abnormality. 2. Mild prostatomegaly. Scribed by: Eleonora Shrestha RDMS, DONATO, ABDULAZIZ Scribed: 08/28/2021 12:01 PM I have reviewed the images, agree with this report, and edited this report as needed. Signer Name: Arpit Nicholson MD Signed: 08/28/2021 1:39 PM Workstation Name: [id number]
== END 2021-08-28 13:18 | disposition home or self-care (01) | DRG 311 ==
LOC: ED 21:21 → 3A 08-26 02:39
PROVIDERS: ADMIT Internal Medicine Geriatric Medicine; ATTEND Internal Medicine
DX: I24.9 Acute ischemic heart disease, unspecified (principal); N13.8 Other obstructive and reflux uropathy; F14.10 Cocaine abuse, uncomplicated; B18.2 Chronic viral hepatitis C; I12.9 Hypertensive chronic kidney disease with stage 1 through stage 4 chronic kidney disease, or unspecified chronic kidney disease; I25.10 Atherosclerotic heart disease of native coronary artery without angina pectoris; Z21 Asymptomatic human immunodeficiency virus [HIV] infection status; N40.1 Benign prostatic hyperplasia with lower urinary tract symptoms; N18.9 Chronic kidney disease, unspecified; F17.210 Nicotine dependence, cigarettes, uncomplicated; E78.5 Hyperlipidemia, unspecified; Z86.73 Personal history of transient ischemic attack (TIA), and cerebral infarction without residual deficits; Z79.899 Other long term (current) drug therapy
CPT/HCPCS: 36415; 71045; 76770; 80048; 80053; 80307; 80320; 81001; 82550; 82553; 83735; 84439; 84443; 84484; 85007; 85025; 93005; 93306; G0378; C8929; G0480; J2405; J3010